=== PATIENT | female | born 1945 | race Caucasian/White ===

== ENCOUNTER 2018-06-25 11:08 | Outpatient (CLI) | payer MEDICARE, BC ==
[2018-06-25 11:29] VITALS: BP 158/79; PULSE 50
[2018-06-25] MEDS ORDERED: Bupivacaine 0.5% 30 ML SDV ONE (11:34)
[2018-06-25] MEDS ORDERED: Triamcinolone Acetonide 40 MG/ML 1 ML MDV ONE (11:38)
--- NOTE | 2018-06-25 20:38 | ANES ---
DATE OF SERVICE: 06/25/2018 PAIN CLINIC NOTE INDICATION: Princess is a 73-year-old female patient referred to us by Dr. Bobo for trigger point injections today. The patient has had these several times in the past and is well aware of the risks and the benefits. I also discussed today about using some Kenalog steroid in her trigger points to give her maybe a little more relief. She said she has been working a little more at work for the last few weeks and see if we can get her little more relief with the steroid. She agreed to do that like I said. Risks and benefits of the steroid and the trigger points were reviewed with the patient. The patient verbalized understanding and wishes to proceed. Please refer to the doctor's notes for ICD-10 code and diagnosis. TECHNIQUE: The patient was then sat at the edge of the bed. She was wanting me to focus on her lower back lumbar region. Alcohol was used to clean that area. I was able to easily identify approximately 17 to 18 trigger points across that area. 1 to 2 mL of 0.5% Sensorcaine mixed with 40 mg of Kenalog was injected into those areas. More than 3 muscle groups were injected today. The patient tolerated the procedure without difficulty. Please refer to the nurse's notes for vital signs. After the appropriate amount of time, the patient will be discharged per ACU protocol. Fabiano Ohara CRNA /[id number]
== END 2018-06-25 11:55 | disposition home or self-care (01) ==
LOC: JP.PAIN 11:08
PROVIDERS: ATTEND Internal Medicine
DX: M60.9 Myositis, unspecified (principal); M53.87 Other specified dorsopathies, lumbosacral region
CPT/HCPCS: 20553; J3301; J3490

== ENCOUNTER 2018-07-23 09:52 | Outpatient (CLI) | payer MEDICARE, BC ==
[~2018-07-23 09:52] MED LIST: Bupivacaine 0.5% 30 ML SDV ONE; Triamcinolone Acetonide 40 MG/ML 1 ML MDV ONE
[2018-07-23 10:13] VITALS: BP 170/84; PULSE 54
--- NOTE | 2018-07-23 20:19 | ANES ---
DATE OF SERVICE: 07/23/2018 Princess is a 73-year-old female patient, referred to us by Dr. Bobo for trigger point injections today. She has had them several times in the past and is well aware of the risks and benefits and wishes to proceed with trigger point injections. Please refer to the doctor's notes for ICD-10 code and diagnosis. Princess today was wanting me to use some Kenalog mixed in with her local. PROCEDURE: The patient was then sat at the edge of the bed. She wanted me to focus on her lower back lumbar region. That area was cleaned with alcohol. I was able to easily identify approximately 18 to 19 trigger points across the lower back lumbar region. 1 to 2 mL of 0.5% Sensorcaine mixed with 40 mg of Kenalog were injected into those areas. More than 3 muscle groups were injected today. The patient tolerated the procedure without difficulty. Please refer to the nurse's notes for vital signs. After the appropriate amount of time, the patient will be discharged per ACU protocol. Fabiano Ohara CRNA /[id number]
== END 2018-07-23 10:43 | disposition home or self-care (01) ==
LOC: JP.PAIN 09:52
PROVIDERS: ATTEND Internal Medicine
DX: M60.9 Myositis, unspecified (principal); M53.87 Other specified dorsopathies, lumbosacral region; M25.551 Pain in right hip
CPT/HCPCS: 20553; J3301; J3490

== ENCOUNTER 2018-09-03 09:29 | Outpatient (CLI) | payer MEDICARE, BC ==
[2018-09-03] MEDS ORDERED: Triamcinolone Acetonide 40 MG/ML 1 ML MDV ONE (09:47)
[2018-09-03] MEDS ORDERED: Bupivacaine 0.5% 30 ML SDV ONE (09:47)
[2018-09-03 10:01] VITALS: BP 174/99; PULSE 60
--- NOTE | 2018-09-03 17:49 | ANES ---
DATE OF SERVICE: 09/03/2018 INDICATION: Princess is a 73-year-old female patient referred to us by Dr. Bobo for trigger point injections today. Princess has had them several times in the past, is well aware of the risks and benefits, and wishes to proceed with trigger point injections. Please refer to the doctor's notes for ICD-10 code and diagnosis. TECHNIQUE: The patient was then sat at the edge of the bed. She is wanting me to focus on her lower back lumbar region. I was able to easily identify approximately 17 to 18 trigger points across that region. Alcohol was used to clean the skin prior to injection. More than 3 muscle groups were injected today. The patient tolerated the procedure without difficulty. Please refer to the nurse's notes for vital signs. After the appropriate amount of time, the patient will be discharged per ACU protocol. Fabiano Ohara CRNA /[id number]
== END 2018-09-03 10:03 | disposition home or self-care (01) ==
LOC: JP.PAIN 09:29
PROVIDERS: ATTEND Internal Medicine
DX: M60.9 Myositis, unspecified (principal); M53.87 Other specified dorsopathies, lumbosacral region
CPT/HCPCS: 20553; J3490; J3301

== ENCOUNTER 2019-09-11 07:15 | Inpatient (IN) | payer MEDICARE, BC ==
[~2019-09-11 07:15] MED LIST changes: -Bupivacaine 0.5% 30 ML SDV ONE; +Meropenem 500 MG SDV ONE; -Triamcinolone Acetonide 40 MG/ML 1 ML MDV ONE
[2019-09-11] MEDS ORDERED: Gabapentin 300 MG Cap PO ONE (08:00)
[2019-09-11] MEDS ORDERED: Rocuronium 50 MG/5 ML Vial ONE (08:23)
[2019-09-11] MEDS ORDERED: fentaNYL 250 MCG/5 ML SDV ONE (08:23)
[2019-09-11] MEDS ORDERED: Dexamethasone 4 MG/ML SDV ONE (08:23)
[2019-09-11] MEDS ORDERED: Ondansetron 4 MG/2 ML SDV ONE (08:23)
[2019-09-11] MEDS ORDERED: Glycopyrrolate 0.2 MG/ML 5 ML MDV ONE (08:23)
[2019-09-11] MEDS ORDERED: Succinylcholine 200 MG/10 ML MDV ONE (08:23)
[2019-09-11] MEDS ORDERED: Neostigmine Methylsulfate 1 MG/ML 5 ML Syringe ONE (08:23)
[2019-09-11] MEDS ORDERED: Propofol 200 MG/20 ML SDV ONE (08:23)
[2019-09-11] MEDS: Dextrose 5%-Lactated Ringers 1,000 ML IV SCH ×2 (08:30→19:10)
[2019-09-11] MEDS ORDERED: Acetaminophen 500 MG Tab PO ONE (09:00)
[2019-09-11] MEDS ORDERED: Albuterol/Ipratropium 3.0-0.5 MG/3 ML Neb Soln NEB ONE (09:00)
[2019-09-11] MEDS ORDERED: ceFAZolin 2 GM in Premix Bag 1 BAG IV ONE (09:00)
[2019-09-11] MEDS ORDERED: Bupivacaine 0.5% 50 ML MDV ONE (09:07)
[2019-09-11] MEDS ORDERED: Lidocaine 1% with EPINEPHrine 1:100,000 50 ML MDV ONE (09:08)
[2019-09-11] MEDS ORDERED: Ropivacaine 36 ML, dexAMETHasone 8 MG, EPINEPHrine 0.4 MG, Sodium Chloride 0.9% 41.6 ML NERVRT SCH ×4 (09:30)
[2019-09-11] MEDS ORDERED: Scopolamine 1.5 MG Transdermal Patch TRDERM SCH (09:30)
[2019-09-11] MEDS ORDERED: ePHEDrine 50 MG/ML SDV ONE (10:37)
[2019-09-11] MEDS ORDERED: Sodium Chloride 0.9% 10 ML ONE (10:37)
[2019-09-11] MEDS ORDERED: Naloxone 0.4 MG/ML SDV IVPUSH PRN (11:01)
[2019-09-11] MEDS ORDERED: diphenhydrAMINE 50 MG/ML SDV IVPUSH PRN (11:01)
[2019-09-11] MEDS ORDERED: diphenhydrAMINE 25 MG Cap PO PRN (11:01)
[2019-09-11] MEDS ORDERED: HYDROmorphone/Normal Saline 15 MG/30 ML PCA IV PRN (11:01)
[2019-09-11] MEDS ORDERED: Ondansetron 4 MG/2 ML SDV IVPUSH PRN (11:01)
[2019-09-11] MEDS ORDERED: Naloxone 0.4 MG/ML SDV IV PRN (12:00)
[2019-09-11] MEDS ORDERED: Lactated Ringers 1,000 ML ONE (12:15)
[2019-09-11] MEDS ORDERED: hydrOXYzine HCL 100 MG/2 ML SDV IM ONE (12:20)
[2019-09-11] MEDS ORDERED: Cyclobenzaprine 10 MG Tab PO PRN (13:38)
[2019-09-11] MEDS ORDERED: Albuterol/Ipratropium 3.0-0.5 MG/3 ML Neb Soln INH PRN (14:00)
[2019-09-11] MEDS ORDERED: hydrOXYzine HCL 100 MG/2 ML SDV IM PRN (14:00)
[2019-09-11] MEDS: SCOPOLAMINE PATCH CHECK TOP SCH (14:00)
[2019-09-11] MEDS: Albuterol/Ipratropium 3.0-0.5 MG/3 ML Neb Soln INH SCH ×2 (14:30→20:22)
[2019-09-11] MEDS: Gabapentin 300 MG Cap PO SCH ×2 (15:01→20:23)
[2019-09-11] MEDS: ceFAZolin 2 GM in Premix Bag 1 BAG IV SCH ×2 (15:01→23:52)
[2019-09-11] MEDS: Acetaminophen 325 MG Tab PO SCH ×2 (16:05→21:29)
[2019-09-11] MEDS: Ondansetron 4 MG/2 ML SDV IVPUSH PRN ×2 (16:36→20:39)
[2019-09-11] MEDS: ClonazePAM 0.5 MG Tab PO SCH (20:22)
[2019-09-11] MEDS: Montelukast 10 MG Tab PO SCH (20:24)
[2019-09-11] MEDS: Carvedilol 6.25 MG Tab PO SCH (20:24)
[2019-09-12] MEDS ORDERED: Lactated Ringers 500 ML IV SCH (00:15)
[2019-09-12] MEDS: Acetaminophen 325 MG Tab PO SCH ×4 (03:18→21:32)
[2019-09-12] MEDS: Dextrose 5%-Lactated Ringers 1,000 ML IV SCH ×3 (03:30→19:57)
[2019-09-12] MEDS: Albuterol/Ipratropium 3.0-0.5 MG/3 ML Neb Soln INH SCH ×4 (07:14→20:10)
--- NOTE | 2019-09-12 08:05 | OR ---
DATE OF PROCEDURE: 09/11/2019 SURGEON: Miguel Horn MD PREOPERATIVE DIAGNOSIS: Incarcerated incisional hernia. POSTOPERATIVE DIAGNOSES: 1. Incarcerated incisional hernia. 2. Elongated peritoneal frond-like lesion (15 cm). 3. Markedly redundant pannus status post repair of hernia. OPERATIVE PROCEDURES: Exploratory laparotomy with lysis of extensive adhesions; 1. Repair of incarcerated incisional hernia with mesh (80748, 81080). 2. Excision of elongated peritoneal frond-like lesion (69900). 3. Placement of Interceed mesh to limit recurrent adhesion formation between pelvic and abdominal wall and underlying viscera (18367). 4. Panniculectomy (10655). ANESTHESIA: General. CUSTOMER SOLUTIONS SPECIALIST: Laura Bruce PA-C. INDICATIONS FOR PROCEDURE: This is a 74-year-old female presenting with enlarging incisional hernia in the periumbilical area that has become nonreducible at this point and the plan is to proceed with a limited laparotomy for repair of the hernia with mesh with other procedures as indicated. Potential risks of the procedure including bleeding, infection, injury to underlying viscera, problems with mesh becoming infected or the hernia recurring as well as possibility of cardiopulmonary, septic, or hemorrhagic complications leading to were discussed, and the patient wishes to proceed. DETAILS OF PROCEDURE: The patient was taken to the operating room and placed in a supine position. After general endotracheal anesthesia was induced, a Sandoval catheter was inserted, and the abdomen was prepped and draped. A midline incision was then made just above the umbilicus, carried out through the skin and subcutaneous tissue. The hernia sac was then encountered. The hernia sac was overall quite large with roughly about the size of a softball. As hernia sac was entered, recurrent adhesions between the omentum and small bowel hernia sac were dissected free. Once this was accomplished, the hernia sac was excised flush with the fascia after being dissected away from the adjacent subcutaneous tissue, some additional adhesions to the small bowel, transverse colon and the omentum and the anterior abdominal wall. Large area of hernia was then taken down with a combination of cautery, sharp dissection and in some cases abdominal wall. Once this was accomplished, the area was inspected. There was a linear white glistening peritoneal lesion beyond the omentum that was carried down to the anterior abdominal wall which was encountered. This was of uncertain histologic nature and this was dissected free and removed in an intact manner. This measured 15 cm in maximal dimension. At this point, bilateral transversus abdominis plane blocks were placed after the adhesions had been cleared. The area was then mapped out and a Ventrio ST hernia patch with a dimensions of 19.6 x 24.6 cm with an oval configuration was selected. Due to the wide transverse nature of the hernia, this was eventually oriented with long axis in the transverse orientation. At roughly 5-cm interval along the circumference, 2-0 Vicryl sutures were placed and stab wounds were placed in the abdominal wall where those would be pulled up with a design to have the mesh affixed in an area well away from the fascial defect. When these sutures were placed, the mesh was soaked in antibiotic-containing saline solution and the left half of the sutures were initially pulled up and the mesh was then pulled up into that area up against the abdominal wall. Two Interceed meshes were then placed which would cover the area of the mesh placement as well as down into the pelvic wall to limit recurrent adhesion formation. Remaining right-sided sutures were then pulled up and this appeared to secure the mesh well on all directions. On the underlying shelf of the mesh, titanium-tacking screws had been placed circumferentially as well. At that point, the intraabdominal portion of procedure appeared to be satisfactorily completed. The fascia at this point appeared to best closed in a transverse manner. This was accomplished with a running #2 Vicryl stitch. The subcutaneous tissue was then approximated in transverse orientation as well in 3 layers. This eventually resulted in a significant distortion of the abdominal pannus with a large ridge extending from the incision in both directions. simply by the fact that the patient's hernia sac was so large, there was a large amount of redundant underlying subcutaneous tissue, and given this panniculectomy excision with the transversely oriented elliptical incision removing a significant portion of central abdominal skin and subcutaneous tissue was undertaken. Once this was accomplished, this was closed with some 3-0 and 4-0 Vicryl stitch deep and then the entire incision which was now T- shaped was closed with candelaria at the skin level. Prior to closure of the subcutaneous tissue, the fascial closure site was anesthetized with 0.5% Marcaine mixed with lidocaine. Physician social services assistant, Laura Norby, played an essential role in assisting in this case, helping to position the patient, retract structures as needed, as well as suturing and cutting sutures when indicated. Her presence improved patient's safety and decreased operative time. Miguel Horn MD /[id number]
[2019-09-12] MEDS: Ondansetron 4 MG/2 ML SDV IVPUSH PRN ×2 (08:24→16:17)
[2019-09-12] MEDS: ceFAZolin 2 GM in Premix Bag 1 BAG IV SCH (08:25)
[2019-09-12] MEDS: Gabapentin 300 MG Cap PO SCH ×3 (08:39→20:04)
[2019-09-12] MEDS: Carvedilol 6.25 MG Tab PO SCH ×2 (08:39→20:03)
[2019-09-12] MEDS: Aspirin 81 MG Tab.EC PO SCH (08:39)
[2019-09-12] MEDS: SCOPOLAMINE PATCH CHECK TOP SCH (10:26)
--- NOTE | 2019-09-12 19:18 | PN ---
DATE OF SERVICE: 09/12/2019 The patient has been afebrile with stable vital signs. No major problems have been noted other than some nausea overnight that appears to be abating. We will leave her on the COLOR ADVISER for today given the extent of surgery. We will go up to a step-2 diet. Maximize activity and work with pulmonary toilet. Miguel Horn MD /[id number]
[2019-09-12] MEDS: Montelukast 10 MG Tab PO SCH (20:04)
[2019-09-12] MEDS: ClonazePAM 0.5 MG Tab PO SCH (20:09)
[2019-09-13] MEDS: Acetaminophen 325 MG Tab PO SCH ×4 (03:04→21:10)
[2019-09-13] MEDS: Dextrose 5%-Lactated Ringers 1,000 ML IV SCH ×2 (05:45→16:17)
[2019-09-13] MEDS: Albuterol/Ipratropium 3.0-0.5 MG/3 ML Neb Soln INH SCH ×4 (07:07→20:55)
[2019-09-13] MEDS ORDERED: Triamcinolone Acetonide 40 MG/ML 1 ML MDV ONE (08:11)
[2019-09-13] MEDS ORDERED: Bupivacaine 0.5% 30 ML SDV ONE (08:12)
--- NOTE | 2019-09-13 09:20 | ANES ---
DATE OF SERVICE: 09/13/2019 INDICATION: Princess is a 74-year-old female patient, who is a frequent [facility] patient of ours, was supposed to have trigger points done a week ago, but had to self-quarantine because she was having hernia surgery on that following Saturday. Hernia surgery was on Saturday and went very well, talked to Dr. Horn who okayed us to do trigger points today because the patient was having a significant amount of back pain recently, and since she missed her appointment on Saturday, we did it today. The patient has been through it many times, understands the risks and benefits related to trigger point injections and wishes to proceed with trigger point injections today. Please refer to the doctor's notes for ICD-10 code and diagnosis. TECHNIQUE: The patient was then sat at the edge of the bed. She was wanting me to focus on her lower back lumbar region. Alcohol was used to clean her skin in that area. I was able to easily identify approximately 20 to 23 trigger points across her lower back lumbar region. 1 to 2 mL of 0.5% Sensorcaine mixed with 40 mg of Kenalog was injected into those areas. More than 3 muscle groups were injected today. The patient tolerated the procedure without difficulty. Please refer to the nurse's notes for vital signs. The patient tolerated the procedure just fine and will continue to be in the hospital related to her surgical procedure on Saturday. Fabiano Ohara CRNA /[id number]
[2019-09-13] MEDS: Docusate Sodium 100 MG Cap PO SCH ×2 (10:04→20:54)
[2019-09-13] MEDS: Gabapentin 300 MG Cap PO SCH ×3 (10:04→20:54)
[2019-09-13] MEDS: Bisacodyl 5 MG Tab PO SCH ×2 (10:04→20:54)
[2019-09-13] MEDS: Carvedilol 6.25 MG Tab PO SCH ×2 (10:05→20:54)
[2019-09-13] MEDS: Aspirin 81 MG Tab.EC PO SCH (10:06)
[2019-09-13] MEDS: SCOPOLAMINE PATCH CHECK TOP SCH (10:06)
--- NOTE | 2019-09-13 15:52 | PN ---
DATE OF SERVICE: 09/13/2019 The patient has been afebrile with stable vital signs. Pain control is a little bit marginal as she forgets to NARROW FABRICS WEAVER that was reviewed with the patient. We will leave NARROW FABRICS WEAVER going for today. Otherwise, maximize activity and work with pulmonary toilet and begin some bowel stimulation. We will switch her to oral pain medication tomorrow. Miguel Horn MD /[id number]
[2019-09-13] MEDS: HYDROmorphone 2 MG Tab PO PRN (19:29)
[2019-09-13] MEDS: ClonazePAM 0.5 MG Tab PO SCH (20:53)
[2019-09-13] MEDS: Montelukast 10 MG Tab PO SCH (20:54)
[2019-09-14] MEDS: Acetaminophen 325 MG Tab PO SCH ×5 (03:33→21:55)
[2019-09-14] MEDS: Albuterol/Ipratropium 3.0-0.5 MG/3 ML Neb Soln INH SCH ×4 (07:18→20:21)
[2019-09-14] MEDS: Aspirin 81 MG Tab.EC PO SCH (08:59)
[2019-09-14] MEDS: Bisacodyl 5 MG Tab PO SCH ×2 (08:59→20:25)
[2019-09-14] MEDS: SCOPOLAMINE PATCH CHECK TOP SCH (09:00)
[2019-09-14] MEDS: Gabapentin 300 MG Cap PO SCH ×3 (09:00→20:25)
[2019-09-14] MEDS: Docusate Sodium 100 MG Cap PO SCH ×2 (09:01→20:25)
[2019-09-14] MEDS: Carvedilol 6.25 MG Tab PO SCH ×2 (09:01→20:28)
--- NOTE | 2019-09-14 09:59 | PN ---
DATE OF SERVICE: 09/11/2019 SUBJECTIVE: Princess is passing flatus. Remains to be weak. O2 drops in the 70s, was sleeping. Nursing staff questioning sleep apnea. Pain has been somewhat controlled, but does not want anything in addition to pain control. Remainder of review of systems negative for any pertinent positives and negatives. Intake was 1960. Urine output 3200. OBJECTIVE: GENERAL: Princess Sims is a 74-year-old female, pale and weak. VITAL SIGNS: TPR at 0727 is 97.3, 58, 16, and blood pressure 138/75. HEENT: Negative. NECK: Supple. HEART: Regular rate and rhythm. LUNGS: Clear. ABDOMEN: Dressings dry and intact. Abdominal binder is on. Aquacel dressing dry and intact. EXTREMITIES: Without peripheral edema. ASSESSMENT: Exploratory laparotomy with lysis of adhesion: 1. Repair of incarcerated incisional hernia. 2. Excision of peritoneal lesion. 3. Panniculectomy. POSTOPERATIVE DIAGNOSES: 1. Incarcerated incisional hernia. 2. Elongated peritoneal lesion (15 cm). 3. Redundant pannus. PLAN: Continue to work with bowels. Discussed with the patient to have a sleep study ordered with some primary care provider to rule out sleep apnea. Continue use of incentive spirometer and ambulation. We will evaluate p.r.n. or in a.m. Laura Bruce PA-C /[id number]
[2019-09-14] MEDS: HYDROmorphone 2 MG Tab PO PRN ×2 (15:40→20:24)
[2019-09-14] MEDS: Montelukast 10 MG Tab PO SCH (20:27)
[2019-09-14] MEDS: ClonazePAM 0.5 MG Tab PO SCH (20:27)
[2019-09-15] MEDS: Acetaminophen 325 MG Tab PO SCH ×3 (05:22→09:56)
[2019-09-15] MEDS: Albuterol/Ipratropium 3.0-0.5 MG/3 ML Neb Soln INH SCH (07:18)
[2019-09-15 08:50] VITALS: BP 148/79; PULSE 66
[2019-09-15] MEDS: Docusate Sodium 100 MG Cap PO SCH (08:55)
[2019-09-15] MEDS: Carvedilol 6.25 MG Tab PO SCH (08:56)
[2019-09-15] MEDS: Aspirin 81 MG Tab.EC PO SCH (08:56)
[2019-09-15] MEDS: Gabapentin 300 MG Cap PO SCH (08:57)
[2019-09-15] MEDS: Bisacodyl 5 MG Tab PO SCH (08:57)
[2019-09-15] MEDS: HYDROmorphone 2 MG Tab PO PRN (09:02)
[2019-09-15] MEDS: SCOPOLAMINE PATCH CHECK TOP SCH (09:22)
--- NOTE | 2019-09-15 15:07 | DISCH ---
ADMISSION DIAGNOSES: 1. Incisional hernia. 2. Status post Wendi-en-Y gastric bypass surgery. 3. Unspecified surgical malabsorption. 4. B12 deficiency. 5. Asthma. 6. Atypical chest pain. 7. Hypertension. 8. Chronic pain syndrome. 9. Depression. 10.Grief reaction. 11.History of migraine headaches. 12.Neuropathy. 13.Osteoporosis. PROCEDURES PERFORMED: 1. Exploratory laparotomy with lysis of extensive adhesions. a. Repair of incarcerated incisional hernia with mesh. b. Excision of elongated peritoneal frond-like lesion. c. Placement of Interceed mesh to limit recurrent adhesion formation between pelvic and abdominal wall and underlying viscera. d. Panniculectomy. DISCHARGE DIAGNOSES: 1. Incarcerated incisional hernia. 2. Elongated peritoneal frond-like lesion, 15 cm. 3. Markedly redundant pannus, status post hernia repair. HISTORY: Princess is a 74-year-old female, presenting with enlarging incisional hernia in the periumbilical area that has become non-reducible at this point. After preoperative evaluation and discussion of possible risks and possible complications, she wished to proceed with surgical procedure. HOSPITAL COURSE: Surgery was on 09/11/2019. She had no operative complications. On postoperative day #1; pain was well managed, vital signs were stable, and she was started on step-2 gastric bypass diet. On postoperative day #2; vital signs remained stable, pain control was marginal due to falling asleep and then not waking up to push the FUR POINTER in time. Otherwise, she has been up ambulating. On postoperative day #2, started passing flatus. Bowel stimulation was started and it was noted that, during sleep, that she did have low saturations and nursing staff question sleep apnea. On 09/15/2019; vital signs were stable, activity was good, she did have a bowel movement, and oral intake was adequate. She was advanced to a step-3 diet and was able to be discharged to home. PHYSICAL EXAMINATION: GENERAL: Princess is a pleasant 74-year-old female. VITAL SIGNS: Height is 5 feet 3 inches. Weight is 158 pounds. BMI is 28. TPR at 0341; 97.1, 67, and 16. Blood pressure 145/61. HEENT: Negative. NECK: Supple. HEART: Regular rate and rhythm. LUNGS: Clear. ABDOMEN: Aquacel dressings on. Thompson are intact. EXTREMITIES: Without peripheral edema. DISPOSITION: Discharged to home. CONDITION: Stable and improving. FOLLOWUP APPOINTMENT: With Laura Bruce PA-C, at [facility], on 09/22/2019, at 1:30 p.m. DISCHARGE MEDICATIONS: Home Medications: 1. Dilaudid 2 mg every 6 hours p.r.n. pain, #28. 2. Tylenol 650 mg every 6 hours p.r.n. pain. She is to resume her home medications as prior to admission. DIET: Step-4 gastric bypass diet. ACTIVITY: No lifting over 10 pounds for 6 weeks. Other activity: Walk at least 6 times daily inside your home. Driving: Do not drive for 1 week and while on pain medication. Shower/Bathing: May shower, no tub bathing and swimming for 6 weeks. DISCHARGE INSTRUCTIONS: Notify provider if any fever, increased pain, nausea, or vomiting. Keep site clean and dry. Wear abdominal binder for 6 weeks and then as tolerated. Special instruction; use incentive spirometer 10 times every hour while awake. Princess was instructed to follow up with her primary care provider to get a sleep apnea test ordered. BRAIN
== END 2019-09-15 10:15 | disposition home or self-care (01) | DRG 354 ==
LOC: JP.SDS 07:15 → EDSTATUS 11:25 → JP.SDSSCHI 12:40 → JP.MS 12:41
PROVIDERS: ADMIT Surgery; ATTEND Surgery
PROC: 0WUF0JZ Supplement Abdominal Wall with Synthetic Substitute, Open Approach (ICD-10-PCS; principal; 2019-09-11)
PROC: 0DBW0ZZ Excision of Peritoneum, Open Approach (ICD-10-PCS; 2019-09-11)
PROC: 0JB80ZZ Excision of Abdomen Subcutaneous Tissue and Fascia, Open Approach (ICD-10-PCS; 2019-09-11)
PROC: 3E0M05Z Introduction of Adhesion Barrier into Peritoneal Cavity, Open Approach (ICD-10-PCS; 2019-09-11)
PROC: 3E0233Z Introduction of Anti-inflammatory into Muscle, Percutaneous Approach (ICD-10-PCS; 2019-09-13)
PROC: 3E023BZ Introduction of Anesthetic Agent into Muscle, Percutaneous Approach (ICD-10-PCS; 2019-09-13)
DX: K43.0 Incisional hernia with obstruction, without gangrene (principal); K91.2 Postsurgical malabsorption, not elsewhere classified; E53.8 Deficiency of other specified B group vitamins; R07.89 Other chest pain; I10 Essential (primary) hypertension; G89.4 Chronic pain syndrome; F32.9 Major depressive disorder, single episode, unspecified; M81.0 Age-related osteoporosis without current pathological fracture; F43.20 Adjustment disorder, unspecified; E65 Localized adiposity; E66.01 Morbid (severe) obesity due to excess calories; J45.20 Mild intermittent asthma, uncomplicated; E55.9 Vitamin D deficiency, unspecified; Z79.82 Long term (current) use of aspirin; Z79.899 Other long term (current) drug therapy; Z88.2 Allergy status to sulfonamides; Z88.5 Allergy status to narcotic agent; Z88.8 Allergy status to other drugs, medicaments and biological substances; Z68.28 Body mass index [BMI] 28.0-28.9, adult
CPT/HCPCS: 36415; 80053; 82607; 82728; 83735; 83880; 84100; 85025; 88302; 88305; 94640; 94762; A9270-GY; C1713; C1781; J0171; J0330; J0690; J1100; J1170; J2020; J2185; J2405; J2704; J2710; J2795; J3010; J3301; J3410; J3490; J7050; J7120; J7121; J7620-GY

== ENCOUNTER 2020-06-17 16:19 | Inpatient (IN) | payer MEDICARE, BC ==
[2020-06-17] MEDS ORDERED: Dexamethasone 4 MG/ML SDV IVPUSH ONE (18:11)
[2020-06-17] MEDS ORDERED: Sodium Chloride 0.9% 1,000 ML IV ONE (18:11)
[2020-06-17] MEDS ORDERED: Magnesium Sulfate/Water 2 GM/50 ML BAG IV ONE (18:11)
[2020-06-17] MEDS ORDERED: Prochlorperazine 10 MG/2 ML SDV IVPUSH ONE (18:11)
[2020-06-17] MEDS ORDERED: diphenhydrAMINE 50 MG/ML SDV IVPUSH ONE (18:11)
--- NOTE | 2020-06-17 18:13 | EDM.PDOC ---
ED HPI GENERAL MEDICAL PROBLEM - General Chief Complaint: Neurological Problem Stated Complaint: CONFUSION Time Seen by Provider: 06/17/20 17:57 Source of Information: Reports: Patient, Family History Limitations: Reports: Altered Mental Status - History of Present Illness INITIAL COMMENTS - FREE TEXT/NARRATIVE: Princess is a 75-year-old female presenting to the ED for a multitude of medical complaints including confusion, headache, blurred vision, and change in speech. Patient awoke this morning with a severe frontal headache is constant causing photophobia, blurred vision, and intense pressure behind the eyes. She denies any fever, chills, numbness or tingling, or weakness. She is currently being evaluated for blue toe syndrome due to severe peripheral vascular disease. She does have a history for frontal headaches, grief reaction with anxiety and depression, essential hypertension, lumbar pain with radiculopathy right-sided sciatica, migraine headaches, morbid obesity, B complex deficiency, hyperparathyroidism, transaminitis, D deficiency. Family noted that the patient's speech changed today when they called to check on her noting that it was more of "baby talk or a high pitch voice" versus her regular interaction. She also seemed a bit confused and keeps asking if she is lost. She denies any fall and there is no evidence for any trauma or ecchymosis. Unclear whether the headache woke her from sleep or she noticed that when she woke up. Frontal Head Pain Score (Numeric/FACES): 8 - Related Data Allergies Allergy/AdvReac Type Severity Reaction Status Date / Time aspartame Allergy Headache Verified 06/15/20 09:59 [From Nutrasweet Aspartame] Sulfa (Sulfonamide Allergy Fever Verified 06/15/20 09:59 Antibiotics) amitriptyline AdvReac Nausea and Verified 06/15/20 09:59 Vomiting ketorolac tromethamine AdvReac Nausea and Verified 06/15/20 09:59 [From Toradol] Vomiting tramadol AdvReac Nausea and Verified 06/15/20 09:59 Vomiting Home Meds: Home Meds Albuterol/Ipratropium [Combivent] 1 puff INH Q4H PRN 08/03/13 [History] Budesonide [Pulmicort] 1 vial NEB Q12H PRN 08/03/13 [History] Calcium Carbonate/Vitamin D3 [Calcium 600-Vit D3 200 Tablet] 1 each PO BID 08/03/13 [History] Cholecalciferol (Vitamin D3) [Vitamin D3] 50,000 unit PO MOWEFR 08/03/13 [History] Cyanocobalamin (Vitamin B-12) [Vitamin B-12] 1,000 mcg PO BID 08/03/13 [History] Folic Acid 1 mg PO DAILY 08/03/13 [History] Mometasone Furoate [Nasonex [place]] 1 spray EZIO DAILY PRN 08/03/13 [History] Montelukast [Singulair] 10 mg PO BEDTIME 08/03/13 [History] Multivitamin W/Iron, Minerals [Multivitamins with Iron] 1 each PO DAILY 08/03/13 [History] Aspirin [Low Dose Aspirin EC] 81 mg PO DAILY 04/27/15 [History] Carvedilol [Coreg] 6.25 mg PO BIDMEALS 04/27/15 [History] ZOLMitriptan [Zomig] 5 mg PO ASDIRECTED PRN 04/27/15 [History] Gabapentin [Neurontin] 300 mg PO BID 01/23/17 [History] Gabapentin [Neurontin] 600 mg PO BEDTIME 03/31/19 [History] Hydrocortisone Acetate [Anusol-Hc] 1 supp RECTAL BID PRN 03/31/19 [History] Albuterol/Ipratropium [DuoNeb 3.0-0.5 MG/3 ML] 3 ml INH Q4H PRN 09/09/19 [History] clonazePAM [Clonazepam] 0.125 mg SL BEDTIME PRN 09/11/19 [History] Acetaminophen [Tylenol] 650 mg PO Q6HR tablet 09/15/19 [Rx] lisinopriL [Lisinopril] 20 mg PO DAILY 04/20/20 [History] amLODIPine [Norvasc] 2.5 mg PO DAILY 05/04/20 [History] Pentoxifylline 400 mg PO TID 06/15/20 [History] Rosuvastatin [Crestor] 10 mg PO DAILY 06/15/20 [History] Past Medical History HEENT History: Reports: Cataract, Impaired Vision, Other (See Below) Other HEENT History: wears glasses Cardiovascular History: Reports: Hypertension, Other (See Below) Other Cardiovascular History: stress test = normal Respiratory History: Reports: Asthma Gastrointestinal History: Reports: Cholelithiasis, Hemorrhoids, Hepatitis Genitourinary History: Reports: Renal Calculus 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: Musculoskeletal History: Reports: Back Pain, Chronic, Fracture Neurological History: Reports: Migraines Psychiatric History: Reports: Anxiety, Depression, Other (See Below) Other Psychiatric History: 1990 amnesia Endocrine/Metabolic History: Reports: Other (See Below) Other Endocrine/Metabolic History: low blood sugar Hematologic History: Reports: Anemia, Iron Deficiency Dermatologic History: Reports: Eczema - Infectious Disease History Infectious Disease History: Reports: Chicken Pox, Measles, Mumps, Shingles Other Infectious Disease History: hepatitis unsure which one - Past Surgical History Head Surgeries/Procedures: Reports: None HEENT Surgical History: Reports: Adenoidectomy, Cataract Surgery, Tonsillectomy Cardiovascular Surgical History: Reports: None Respiratory Surgical History: Reports: None GI Surgical History: Reports: Bariatric Procedure, Cholecystectomy, Colonoscopy, EGD Female Surgical History: Reports: Hysterectomy Endocrine Surgical History: Reports: Parathyroidectomy Neurological Surgical History: Reports: None Musculoskeletal Surgical History: Reports: None Social & Family History - Family History Cardiac: Reports: Hypertension Oncologic: Reports: Brain, Liver, Lung - Tobacco Use Tobacco Use Status *Q: Never Tobacco User Second Hand Smoke Exposure: No - Caffeine Use Caffeine Use: Reports: None - Recreational Drug Use Recreational Drug Use: No ED ROS GENERAL - Review of Systems Review Of Systems: See Below Constitutional: Reports: Malaise HEENT: Reports: Vision Change (Blurred vision and photophobia) Respiratory: Reports: No Symptoms Cardiovascular: Reports: No Symptoms Endocrine: Reports: No Symptoms GI/Abdominal: Reports: Nausea : Reports: No Symptoms Musculoskeletal: Reports: No Symptoms Skin: Reports: No Symptoms Neurological: Reports: Headache (Severe frontal headache), Trouble Speaking (Slow to respond), Change in Speech (High-pitched speech). Denies: Numbness, Paresthesia, Tremors Psychiatric: Reports: Anxiety (Grieving the loss of 4 family members this year with birthdays this month.) Hematologic/Lymphatic: Reports: No Symptoms Immunologic: Reports: No Symptoms - Physical Exam Exam: See Below Exam Limited By: No Limitations General Appearance: Alert, Anxious, Mild Distress Eye Exam: Bilateral Eye: EOMI, PERRL Nose: Normal Inspection, Normal Mucosa Throat/Mouth: Normal Inspection, Normal Lips, Normal Oropharynx, Normal Voice, No Airway Compromise Head Exam: Atraumatic, Normocephalic Neck: Normal Inspection, Supple, Non-Tender, Full Range of Motion. No: Carotid Bruit, Lymphadenopathy (R), Lymphadenopathy (L) Respiratory/Chest: No Respiratory Distress, Lungs Clear, Normal Breath Sounds Cardiovascular: Normal Peripheral Pulses, Regular Rate, Rhythm, No Murmur GI/Abdominal: Normal Bowel Sounds, Soft, Non-Tender Neuro Exam (Abbreviated): Alert, Oriented (Slow to respond), CN II-XII Intact, Normal Cognition (Answers correctly but takes quite a bit of time to answer the question), No Motor/Sensory Deficits Back Exam: Normal Inspection, Full Range of Motion Extremities: Other (Painfull, blue right toe) Psychiatric: Anxious, Depressed Mood, Flat Affect Skin Exam: Warm, Dry Course - Vital Signs Last Recorded V/S: Last Vital Signs Temp 36.7 C 06/17/20 17:05 Pulse 59 L 06/17/20 19:22 Resp 14 06/17/20 19:22 BP 149/77 H 06/17/20 19:22 Pulse Ox 93 L 06/17/20 19:22 - Orders/Labs/Meds Orders: Active Orders 24 hr Category Date Time Status Cardiac Monitoring [RC] .As Directed Care 06/17/20 17:37 Active Dextrose 5% in Water 1,000 ml Med 06/17/20 19:15 Active IV ASDIRECTED Medication Orders Dextrose/Water (Dextrose 5% In Water) 1,000 mls @ 125 mls/hr IV ASDIRECTED ANISHA Last Admin: 06/17/20 19:23 Dose: 125 mls/hr Documented by: BRANNON Labs: Laboratory Tests 06/17/20 06/17/20 06/17/20 Range/Units 17:48 17:52 17:52 WBC 8.2 (4.5-11.0) K/uL RBC 4.11 (3.30-5.50) M/uL Hgb 12.3 (12.0-15.0) g/dL Hct 39.4 (36.0-48.0) % MCV 96 (80-98) fL MCH 30 (27-31) pg MCHC 31 L (32-36) % Plt Count 216 (150-400) K/uL Sodium 150 H (140-148) mmol/L Potassium 3.7 (3.6-5.2) mmol/L Chloride 107 (100-108) mmol/L Carbon Dioxide 29 (21-32) mmol/L Anion Gap 17.7 H (5.0-14.0) mmol/L BUN 16 (7-18) mg/dL Creatinine 0.8 (0.6-1.0) mg/dL Est Cr Clr Drug Dosing 48.80 mL/min Estimated GFR (MDRD) > 60 (>60) Glucose 99 (74-106) mg/dL Lactic Acid 1.0 (0.4-2.0) mmol/L Calcium 8.9 D (8.5-10.1) mg/dL Troponin I < 0.017 (0.000-0.056) ng/mL Urine Color (YELLOW) Urine Appearance (CLEAR) Urine pH (5.0-8.0) Ur Specific [place] (1.008-1.030) Urine Protein (NEGATIVE) mg/dL Urine Glucose (UA) (NEGATIVE) mg/dL Urine Ketones (NEGATIVE) mg/dL Urine Occult Blood (NEGATIVE) Urine Nitrite (NEGATIVE) Urine Bilirubin (NEGATIVE) Urine Urobilinogen (0.2-1.0) EU/dL Ur Leukocyte Esterase (NEGATIVE) Urine RBC (0-5) Urine WBC (0-5) Ur Epithelial Cells Amorphous Sediment Urine Bacteria Urine Mucus 06/17/20 Range/Units 18:50 WBC (4.5-11.0) K/uL RBC (3.30-5.50) M/uL Hgb (12.0-15.0) g/dL Hct (36.0-48.0) % MCV (80-98) fL MCH (27-31) pg MCHC (32-36) % Plt Count (150-400) K/uL Sodium (140-148) mmol/L Potassium (3.6-5.2) mmol/L Chloride (100-108) mmol/L Carbon Dioxide (21-32) mmol/L Anion Gap (5.0-14.0) mmol/L BUN (7-18) mg/dL Creatinine (0.6-1.0) mg/dL Est Cr Clr Drug Dosing mL/min Estimated GFR (MDRD) (>60) Glucose (74-106) mg/dL Lactic Acid (0.4-2.0) mmol/L Calcium (8.5-10.1) mg/dL Troponin I (0.000-0.056) ng/mL Urine Color Yellow (YELLOW) Urine Appearance Clear (CLEAR) Urine pH 5.5 (5.0-8.0) Ur Specific [place] 1.010 (1.008-1.030) Urine Protein Negative (NEGATIVE) mg/dL Urine Glucose (UA) Negative (NEGATIVE) mg/dL Urine Ketones Negative (NEGATIVE) mg/dL Urine Occult Blood Negative (NEGATIVE) Urine Nitrite Negative (NEGATIVE) Urine Bilirubin Negative (NEGATIVE) Urine Urobilinogen 0.2 (0.2-1.0) EU/dL Ur Leukocyte Esterase Small H (NEGATIVE) Urine RBC 0-5 (0-5) Urine WBC 0-5 (0-5) Ur Epithelial Cells Rare Amorphous Sediment Not seen Urine Bacteria Rare Urine Mucus Not seen Meds: Medications Generic Name Dose Route Start Last Admin Trade Name Freq PRN Reason Stop Dose Admin Dextrose/Water 1,000 mls @ 125 mls/hr 06/17/20 19:15 06/17/20 19:23 Dextrose 5% In Water IV 125 mls/hr ASDIRECTED ANISHA Administration Discontinued Medications Generic Name Dose Route Start Last Admin Trade Name Freq PRN Reason Stop Dose Admin Dexamethasone 10 mg 06/17/20 18:11 06/17/20 18:40 Dexamethasone 4 Mg/Ml Sdv IVPUSH 06/17/20 18:12 10 mg ONETIME ONE Administration Diphenhydramine HCl 25 mg 06/17/20 18:11 06/17/20 18:36 Diphenhydramine 50 Mg/Ml Sdv IVPUSH 06/17/20 18:12 25 mg ONETIME ONE Administration Magnesium Sulfate 2 gm in 50 mls @ 25 mls/hr 06/17/20 18:11 06/17/20 18:43 Magnesium Sulfate In Water 2 Gm/50 Ml IV 06/17/20 20:10 25 mls/hr ONETIME ONE Administration Sodium Chloride 1,000 mls @ 999 mls/hr 06/17/20 18:11 06/17/20 18:48 Normal Saline IV 06/17/20 19:11 999 mls/hr .BOLUS ONE Administration Prochlorperazine Edisylate 10 mg 06/17/20 18:11 06/17/20 18:38 Prochlorperazine 10 Mg/2 Ml Sdv IVPUSH 06/17/20 18:12 10 mg ONETIME ONE Administration - Re-Assessments/Exams Free Text/Narrative Re-Assessment/Exam: 06/17/20 20:43 I reviewed the patient's labs showing a significant elevation of her sodium at 150. I did order a urine osmolality, however, it is a send out and will not go out until Saturday so this is useless and acute hypernatremia. Patient was switched off of normal saline to D5W for free water. At this point, she is not quite back to baseline although her headache is much better after treatment with diphenhydramine 25 mg IV, dexamethasone 10 mg IV, Compazine 10 mg IV, and magnesium 2 g IV. I do think that we should admit her for observation and continued water resuscitation. I discussed the case with Dr. Garay who will come in to admit the patient. 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 equivalents) Altered mental status Qualifiers: Altered mental status type: transient alteration of awareness Qualified Code(s): R40.4 - Transient alteration of awareness - Discharge Information Referrals: Gianni Bobo MD [Primary Care Provider] - Forms: ED Department Discharge Sepsis Event Note (ED) - Evaluation Sepsis Screening Result: No Definite Risk - Focused Exam Vital Signs: Vital Signs Temp Pulse Resp BP Pulse Ox 06/17/20 19:22 59 L 14 149/77 H 93 L 06/17/20 18:13 58 L 15 155/82 H 93 L 06/17/20 17:24 56 L 12 145/78 H 93 L 06/17/20 17:05 36.7 C 59 L 16 169/88 H 100 06/17/20 16:55 36.7 C 59 L 16 169/88 H 100 - Problem List & Annotations (1) Acute hypernatremia SNOMED Code(s): 9065859 Code(s): E87.0 - HYPEROSMOLALITY AND HYPERNATREMIA Status: Acute Priority: High Current Visit: Yes (2) Altered mental status SNOMED Code(s): 497225597 Code(s): R41.82 - ALTERED MENTAL STATUS, UNSPECIFIED Status: Acute Priority: High Current Visit: Yes Qualifiers: Altered mental status type: transient alteration of awareness Qualified Code(s): R40.4 - Transient alteration of awareness (3) 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
--- NOTE | 2020-06-17 18:53 | CRLCT ---
INDICATION: Confusion TECHNIQUE: CT head without contrast. COMPARISON: None. FINDINGS: CSF spaces: Within normal limits for age. Brain parenchyma: No intracranial bleed or mass effect. Givens-white differentiation is distinct. Small amount of low-density in the deep white matter. Skull base and calvarium: The visualized paranasal sinuses and mastoid air cells demonstrate no acute or significant findings. The visualized orbits are grossly unremarkable. No skull fractures. Right frontal exostosis at the outer table measuring 16 millimeters. IMPRESSION: 1. No intracranial bleed or mass effect. 2. Nonspecific white matter disease, likely microangiopathy. Please note that all CT scans at this facility use dose modulation, iterative reconstruction, and/or weight-based dosing when appropriate to reduce radiation dose to as low as reasonably achievable. Dictated by Saurabh Villegas MD @ Jun 17 2020 6:50PM Signed by Dr. Saurabh Villegas @ Jun 17 2020 6:52PM
[2020-06-17] MEDS ORDERED: Dextrose 5% in Water 1,000 ML IV SCH ×2 (19:15→22:45)
[2020-06-17] MEDS ORDERED: Promethazine 6.25 MG in Sodium Chloride 0.9% 50 ML IV PRN (21:15)
[2020-06-17] MEDS ORDERED: Acetaminophen/oxyCODONE 325-5 MG Tab PO PRN (21:15)
[2020-06-17] MEDS ORDERED: Acetaminophen 325 MG Tab PO PRN (21:15)
[2020-06-17] MEDS ORDERED: Albuterol/Ipratropium 3.0-0.5 MG/3 ML Neb Soln NEB PRN (21:33)
[2020-06-17] MEDS ORDERED: Carvedilol 3.125 MG Tab PO ONE (21:33)
--- NOTE | 2020-06-17 22:08 | PCM.HP.2 ---
H&P History of Present Illness - General Date of Service: 06/17/20 Admit Problem/Dx: Admission Diagnosis/Problem Admission Diagnosis/Problem Hypernatremia Source of Information: Patient, Family History Limitations: Reports: Altered Mental Status - History of Present Illness Initial Comments - Free Text/Narative: Patient is a 75yo female who was brought in by family from the clinic due to acute confusion. She was fine earlier in the day and has been fine leading up to today. She was found to be acutely hypernatremic, but seemingly not hypovolemic as her urine was dilute. However, this is in question, as there is no way to test urine osmolality in this facility. She is improving in the ED with D5W. She additionally has PMH of HTN, HLD, neuropathic pain, PAD, asthma, vitamin deficiencies, and migraines. Onset of Symptoms: Reports: Today, Sudden Symptom Onset Date: 06/17/20 Duration of Symptoms: Reports: Hour(s): Location: Reports: Generalized Severity: Moderate Improves with: Reports: Medication Worsens with: Reports: None Associated Symptoms: Reports: Confusion, Weakness Frontal Head Pain Score (Numeric/FACES): 2 - Related Data Allergies/Adverse Reactions: Allergies Allergy/AdvReac Type Severity Reaction Status Date / Time aspartame Allergy Headache Verified 06/15/20 09:59 [From Nutrasweet Aspartame] Sulfa (Sulfonamide Allergy Fever Verified 06/15/20 09:59 Antibiotics) amitriptyline AdvReac Nausea and Verified 06/15/20 09:59 Vomiting ketorolac tromethamine AdvReac Nausea and Verified 06/15/20 09:59 [From Toradol] Vomiting tramadol AdvReac Nausea and Verified 06/15/20 09:59 Vomiting Home Medications: Home Meds Albuterol/Ipratropium [Combivent] 1 puff INH Q4H PRN 08/03/13 [History] Budesonide [Pulmicort] 1 vial NEB Q12H PRN 08/03/13 [History] Calcium Carbonate/Vitamin D3 [Calcium 600-Vit D3 200 Tablet] 1 each PO BID 08/03/13 [History] Cholecalciferol (Vitamin D3) [Vitamin D3] 50,000 unit PO MOWEFR 08/03/13 [History] Cyanocobalamin (Vitamin B-12) [Vitamin B-12] 1,000 mcg PO BID 08/03/13 [History] Folic Acid 1 mg PO DAILY 08/03/13 [History] Mometasone Furoate [Nasonex [place]] 1 spray EZIO DAILY PRN 08/03/13 [History] Montelukast [Singulair] 10 mg PO BEDTIME 08/03/13 [History] Multivitamin W/Iron, Minerals [Multivitamins with Iron] 1 each PO DAILY 08/03/13 [History] Aspirin [Low Dose Aspirin EC] 81 mg PO DAILY 04/27/15 [History] Carvedilol [Coreg] 6.25 mg PO BIDMEALS 04/27/15 [History] ZOLMitriptan [Zomig] 5 mg PO ASDIRECTED PRN 04/27/15 [History] Gabapentin [Neurontin] 300 mg PO BID 01/23/17 [History] Gabapentin [Neurontin] 600 mg PO BEDTIME 03/31/19 [History] Hydrocortisone Acetate [Anusol-Hc] 1 supp RECTAL BID PRN 03/31/19 [History] Albuterol/Ipratropium [DuoNeb 3.0-0.5 MG/3 ML] 3 ml INH Q4H PRN 09/09/19 [History] clonazePAM [Clonazepam] 0.125 mg SL BEDTIME PRN 09/11/19 [History] Acetaminophen [Tylenol] 650 mg PO Q6HR tablet 09/15/19 [Rx] lisinopriL [Lisinopril] 20 mg PO DAILY 04/20/20 [History] amLODIPine [Norvasc] 2.5 mg PO DAILY 05/04/20 [History] Pentoxifylline 400 mg PO TID 06/15/20 [History] Rosuvastatin [Crestor] 10 mg PO DAILY 06/15/20 [History] Past Medical History HEENT History: Reports: Cataract, Impaired Vision, Other (See Below) Other HEENT History: wears glasses Cardiovascular History: Reports: Hypertension, Other (See Below) Other Cardiovascular History: stress test = normal Respiratory History: Reports: Asthma Gastrointestinal History: Reports: Cholelithiasis, Hemorrhoids, Hepatitis Genitourinary History: Reports: Renal Calculus 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: Musculoskeletal History: Reports: Back Pain, Chronic, Fracture Neurological History: Reports: Migraines Psychiatric History: Reports: Anxiety, Depression, Other (See Below) 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 Endocrine/Metabolic History: Reports: Other (See Below) Other Endocrine/Metabolic History: low blood sugar Hematologic History: Reports: Anemia, Iron Deficiency Dermatologic History: Reports: Eczema - Infectious Disease History Infectious Disease History: Reports: Chicken Pox, Measles, Mumps, Shingles Other Infectious Disease History: hepatitis unsure which one - Past Surgical History Head Surgeries/Procedures: Reports: None HEENT Surgical History: Reports: Adenoidectomy, Cataract Surgery, Tonsillectomy Cardiovascular Surgical History: Reports: None Respiratory Surgical History: Reports: None GI Surgical History: Reports: Bariatric Procedure, Cholecystectomy, Colonoscopy, EGD Female Surgical History: Reports: Hysterectomy Endocrine Surgical History: Reports: Parathyroidectomy Neurological Surgical History: Reports: None Musculoskeletal Surgical History: Reports: None Social & Family History - Family History Cardiac: Reports: Hypertension Oncologic: Reports: Brain, Liver, Lung - Tobacco Use Tobacco Use Status *Q: Never Tobacco User Second Hand Smoke Exposure: No - Caffeine Use Caffeine Use: Reports: None - Recreational Drug Use Recreational Drug Use: No H&P Review of Systems - Review of Systems: Review Of Systems: See Below General: Reports: Weakness, Fatigue HEENT: Reports: No Symptoms Pulmonary: Reports: No Symptoms Cardiovascular: Reports: No Symptoms Gastrointestinal: Reports: No Symptoms Genitourinary: Reports: No Symptoms Musculoskeletal: Reports: No Symptoms Skin: Reports: No Symptoms Psychiatric: Reports: No Symptoms Neurological: Reports: Confusion, Dizziness, Trouble Speaking, Weakness, Change in Speech Hematologic/Lymphatic: Reports: No Symptoms Immunologic: Reports: No Symptoms Exam - Exam Exam: See Below - Vital Signs Vital Signs: Last Vital Signs Temp 36.7 C 06/17/20 17:05 Pulse 63 06/17/20 21:06 Resp 14 06/17/20 19:22 BP 148/79 H 06/17/20 21:06 Pulse Ox 94 L 06/17/20 21:06 Weight: 68.039 kg - Exam General: Alert, Oriented, 4 HEENT: PERRLA, Hearing Intact, Mucosa Moist & [place], Nares Patent, Normal Nasal Septum, Posterior Pharynx Clear, Conjunctiva Clear, EOMI, EACs Clear, TMs Clear Neck: Supple, Trachea Midline, 2 Lungs: Clear to Auscultation, Normal Respiratory Effort Cardiovascular: Regular Rate, Regular Rhythm GI/Abdominal Exam: Normal Bowel Sounds, Soft, Non-Tender, No Organomegaly, No Distention, No Abnormal Bruit, No Mass, Pelvis Stable (Female) Exam: Deferred Rectal (Female) Exam: Deferred Back Exam: Normal Inspection, Full Range of Motion, NT Extremities: Normal Inspection, Normal Range of Motion, Non-Tender, No Pedal Edema, Normal Capillary Refill Skin: Warm, Dry, Intact Neurological: Cranial Nerves Intact, Reflexes Equal Bilateral Neuro Extensive - Mental Status: Alert, Oriented x3, Normal Mood/Affect, Normal Cognition Neuro Extensive - Motor, Sensory, Reflexes: CN II-XII Intact, Normal Gait, Normal Reflexes Psychiatric: Alert, Normal Affect, Normal Mood - Patient Data Lab Results Last 24 hrs: Laboratory Results - last 24 hr 06/17/20 06/17/20 06/17/20 Range/Units 17:48 17:52 17:52 WBC 8.2 (4.5-11.0) K/uL RBC 4.11 (3.30-5.50) M/uL Hgb 12.3 (12.0-15.0) g/dL Hct 39.4 (36.0-48.0) % MCV 96 (80-98) fL MCH 30 (27-31) pg MCHC 31 L (32-36) % Plt Count 216 (150-400) K/uL Sodium 150 H (140-148) mmol/L Potassium 3.7 (3.6-5.2) mmol/L Chloride 107 (100-108) mmol/L Carbon Dioxide 29 (21-32) mmol/L Anion Gap 17.7 H (5.0-14.0) mmol/L BUN 16 (7-18) mg/dL Creatinine 0.8 (0.6-1.0) mg/dL Est Cr Clr Drug Dosing 48.80 mL/min Estimated GFR (MDRD) > 60 (>60) Glucose 99 (74-106) mg/dL Lactic Acid 1.0 (0.4-2.0) mmol/L Calcium 8.9 D (8.5-10.1) mg/dL Troponin I < 0.017 (0.000-0.056) ng/mL Urine Color (YELLOW) Urine Appearance (CLEAR) Urine pH (5.0-8.0) Ur Specific [place] (1.008-1.030) Urine Protein (NEGATIVE) mg/dL Urine Glucose (UA) (NEGATIVE) mg/dL Urine Ketones (NEGATIVE) mg/dL Urine Occult Blood (NEGATIVE) Urine Nitrite (NEGATIVE) Urine Bilirubin (NEGATIVE) Urine Urobilinogen (0.2-1.0) EU/dL Ur Leukocyte Esterase (NEGATIVE) Urine RBC (0-5) Urine WBC (0-5) Ur Epithelial Cells Amorphous Sediment Urine Bacteria Urine Mucus 06/17/20 Range/Units 18:50 WBC (4.5-11.0) K/uL RBC (3.30-5.50) M/uL Hgb (12.0-15.0) g/dL Hct (36.0-48.0) % MCV (80-98) fL MCH (27-31) pg MCHC (32-36) % Plt Count (150-400) K/uL Sodium (140-148) mmol/L Potassium (3.6-5.2) mmol/L Chloride (100-108) mmol/L Carbon Dioxide (21-32) mmol/L Anion Gap (5.0-14.0) mmol/L BUN (7-18) mg/dL Creatinine (0.6-1.0) mg/dL Est Cr Clr Drug Dosing mL/min Estimated GFR (MDRD) (>60) Glucose (74-106) mg/dL Lactic Acid (0.4-2.0) mmol/L Calcium (8.5-10.1) mg/dL Troponin I (0.000-0.056) ng/mL Urine Color Yellow (YELLOW) Urine Appearance Clear (CLEAR) Urine pH 5.5 (5.0-8.0) Ur Specific [place] 1.010 (1.008-1.030) Urine Protein Negative (NEGATIVE) mg/dL Urine Glucose (UA) Negative (NEGATIVE) mg/dL Urine Ketones Negative (NEGATIVE) mg/dL Urine Occult Blood Negative (NEGATIVE) Urine Nitrite Negative (NEGATIVE) Urine Bilirubin Negative (NEGATIVE) Urine Urobilinogen 0.2 (0.2-1.0) EU/dL Ur Leukocyte Esterase Small H (NEGATIVE) Urine RBC 0-5 (0-5) Urine WBC 0-5 (0-5) Ur Epithelial Cells Rare Amorphous Sediment Not seen Urine Bacteria Rare Urine Mucus Not seen Result Diagrams: 06/17/20 17:52 06/17/20 17:52 Sepsis Event Note - Evaluation Sepsis Screening Result: No Definite Risk - Focused Exam Vital Signs: Vital Signs Temp Pulse Resp BP Pulse Ox 06/17/20 21:06 63 148/79 H 94 L 06/17/20 19:22 59 L 14 149/77 H 93 L 06/17/20 18:13 58 L 15 155/82 H 93 L 06/17/20 17:24 56 L 12 145/78 H 93 L 06/17/20 17:05 36.7 C 59 L 16 169/88 H 100 06/17/20 16:55 36.7 C 59 L 16 169/88 H 100 - Problem List (1) Acute hypernatremia SNOMED Code(s): 7032360 ICD Code: E87.0 - HYPEROSMOLALITY AND HYPERNATREMIA Status: Acute Priority: High Current Visit: Yes Onset Date: 06/17/20 Problem Details: Will continue to give D5W and will continue to monitor Na+ levels. Patient on up with assist due to possible dizziness/weakness/confusion. (2) Altered mental status SNOMED Code(s): 834370124 ICD Code: R41.82 - ALTERED MENTAL STATUS, UNSPECIFIED Status: Acute Priority: High Current Visit: Yes Onset Date: ~06/17/20 Problem Details: Resolved with D5W Qualifiers: Altered mental status type: transient alteration of awareness Qualified Code(s): R40.4 - Transient alteration of awareness (3) Asthma SNOMED Code(s): 941558406 ICD Code: J45.909 - UNSPECIFIED ASTHMA, UNCOMPLICATED Status: Acute Current Visit: Yes Problem Details: Will continue home meds and give duonebs and pulmicort for maintanence as needed Qualifiers: Asthma severity: moderate (4) HLD (hyperlipidemia) SNOMED Code(s): 52531272 ICD Code: E78.5 - HYPERLIPIDEMIA, UNSPECIFIED Status: Acute Current Visit: Yes Problem Details: will continue home medications Qualifiers: Hyperlipidemia type: unspecified Qualified Code(s): E78.5 - Hyperlipidemia, unspecified (5) PAD (peripheral artery disease) SNOMED Code(s): 882113405 ICD Code: I73.9 - PERIPHERAL VASCULAR DISEASE, UNSPECIFIED Status: Acute Current Visit: Yes Problem Details: Will continue home medications (6) Neuropathy SNOMED Code(s): 188435586 ICD Code: G62.9 - POLYNEUROPATHY, UNSPECIFIED Status: Acute Current Visit: Yes Problem Details: Patient receives gabapentin 600mg QHS and 300mg BID to treat neuropathy (7) GERD (gastroesophageal reflux disease) SNOMED Code(s): 933213829 ICD Code: K21.9 - GASTRO-ESOPHAGEAL REFLUX DISEASE WITHOUT ESOPHAGITIS Status: Acute Current Visit: Yes Problem Details: will continue PPI while in hospital (8) Essential hypertension SNOMED Code(s): 44022275 ICD Code: I10 - ESSENTIAL (PRIMARY) HYPERTENSION Status: Chronic Current Visit: No Problem Details: Will continue home medications Problem List Initiated/Reviewed/Updated: Yes Orders Last 24hrs: Active Orders 24 hr Category Date Time Status Patient Status [ADT] Routine ADT 06/17/20 21:06 Ordered Bedrest Bedside Commode [RC] ASDIRECTED Care 06/17/20 21:15 Ordered Cardiac Monitoring [RC] .As Directed Care 06/17/20 17:37 Active Cardiac Monitoring [RC] .As Directed Care 06/17/20 21:18 Ordered Intake and Output [RC] QSHIFT Care 06/17/20 21:18 Ordered Oxygen Therapy [RC] PRN Care 06/17/20 21:06 Ordered Pulse Oximetry [RC] CONTINUOUS Care 06/17/20 21:18 Ordered RT Aerosol Therapy [RC] ASDIRECTED Care 06/17/20 21:36 Ordered Up With Assistance [RC] ASDIRECTED Care 06/17/20 21:15 Ordered Vital Signs [RC] Q4H Care 06/17/20 21:06 Ordered 2 Gram Sodium Diet [DIET] Diet 06/17/20 Breakfast Ordered COMPREHENSIVE METABOLIC PN,CMP [CHEM] Routine Lab 06/18/20 08:00 Ordered COMPREHENSIVE METABOLIC PN,CMP [CHEM] Timed Lab 06/18/20 02:00 Ordered UA W/O MICROSCOPIC [URIN] Routine Lab 06/18/20 09:00 Ordered Acetaminophen [TylenoL] Med 06/17/20 21:15 Ordered 650 mg PO Q4H PRN Acetaminophen/oxyCODONE [Percocet 325-5 MG] Med 06/17/20 21:15 Ordered 1 tab PO Q4H PRN Albuterol/Ipratropium [DuoNeb 3.0-0.5 MG/3 ML] Med 06/17/20 21:33 Ordered 3 ml NEB Q4H PRN Budesonide [Pulmicort] Med 06/18/20 07:00 Ordered 0.5 mg NEB BIDRT Dextrose 5% in Water 1,000 ml Med 06/17/20 19:15 Active IV ASDIRECTED Folic Acid Med 06/18/20 09:00 Ordered 1 mg PO DAILY Gabapentin [Neurontin] Med 06/18/20 09:00 Ordered 300 mg PO BID Gabapentin [Neurontin] Med 06/18/20 21:00 Ordered 600 mg PO BEDTIME Ibuprofen [Motrin] Med 06/17/20 21:15 Ordered 600 mg PO Q6H PRN Morphine Med 06/17/20 21:15 Ordered 2 mg IVPUSH Q2H PRN Ondansetron [Zofran ODT] Med 06/17/20 21:15 Ordered 4 mg PO Q6H PRN Pantoprazole [ProTONIX] Med 06/18/20 07:30 Ordered 40 mg PO ACBREAKFAST Pentoxifylline [TRENtal] Med 06/18/20 08:00 Ordered 400 mg PO TIDMEALS Promethazine [Phenergan] 6.25 mg Med 06/17/20 21:15 Ordered Sodium Chloride 0.9% [Normal Saline] 50 ml IV Q6H Rosuvastatin [Crestor] Med 06/18/20 09:00 Ordered 10 mg PO DAILY amLODIPine [Norvasc] Med 06/18/20 09:00 Ordered 2.5 mg PO DAILY lisinopriL [Prinivil] Med 06/18/20 09:00 Ordered 20 mg PO DAILY Resuscitation Status Routine Resus Stat 06/17/20 21:06 Ordered Medication Orders Acetaminophen (Acetaminophen 325 Mg Tab) 650 mg PO Q4H PRN PRN Reason: Pain (Mild 1-3)/fever Albuterol/Ipratropium (Albuterol/Ipratropium 3.0-0.5 Mg/3 Ml Neb Soln) 3 ml NEB Q4H PRN PRN Reason: Cough Amlodipine Besylate (Amlodipine 5 Mg Tab) 2.5 mg PO DAILY ANISHA Budesonide (Budesonide 0.5 Mg/2 Ml Neb Susp) 0.5 mg NEB BIDRT ANISHA Folic Acid (Folic Acid 1 Mg Tab) 1 mg PO DAILY ANISHA Gabapentin (Gabapentin 300 Mg Cap) 600 mg PO BEDTIME ANISHA Gabapentin (Gabapentin 300 Mg Cap) 300 mg PO BID@0800,1400 [facility] Dextrose/Water (Dextrose 5% In Water) 1,000 mls @ 125 mls/hr IV ASDIRECTED [facility] Last Admin: 06/17/20 19:23 Dose: 125 mls/hr Documented by: BRANNON Promethazine HCl 6.25 mg/ (Sodium Chloride) 50.25 mls @ 200 mls/hr IV Q6H PRN PRN Reason: Nausea/Vomiting Ibuprofen (Ibuprofen 600 Mg Tab) 600 mg PO Q6H PRN PRN Reason: Pain/Fever Lisinopril (Lisinopril 20 Mg Tab) 20 mg PO DAILY [facility] Morphine Sulfate (Morphine 2 Mg/Ml Syringe) 2 mg IVPUSH Q2H PRN PRN Reason: Pain (severe 7-10) Ondansetron HCl (Ondansetron 4 Mg Tab.Dis) 4 mg PO Q6H PRN PRN Reason: Nausea able to take PO Oxycodone/Acetaminophen (Acetaminophen/Oxycodone 325-5 Mg Tab) 1 tab PO Q4H PRN PRN Reason: Pain (moderate 4-6) Pantoprazole Sodium (Pantoprazole 40 Mg Tab.Cr) 40 mg PO ACBREAKFAST [facility] Pentoxifylline (Pentoxifylline 400 Mg Tab.Er) 400 mg PO TIDMEALS [facility] Rosuvastatin Calcium (Rosuvastatin 10 Mg Tab) 10 mg PO DAILY [facility] - Mortality Measure Prognosis:: Good
[2020-06-18] MEDS: Ibuprofen 600 MG Tab PO PRN ×3 (03:49→19:19)
[2020-06-18] MEDS: Budesonide 0.5 MG/2 ML Neb Susp NEB SCH ×2 (07:43→20:33)
[2020-06-18] MEDS: Pantoprazole 40 MG Tab.CR PO SCH (09:08)
[2020-06-18] MEDS: Gabapentin 300 MG Cap PO SCH ×3 (09:08→20:33)
[2020-06-18] MEDS: Lisinopril 20 MG Tab PO SCH (09:09)
[2020-06-18] MEDS: Pentoxifylline 400 MG Tab.ER PO SCH ×3 (09:09→17:44)
[2020-06-18] MEDS: Rosuvastatin 10 MG Tab PO SCH (09:09)
[2020-06-18] MEDS: Folic Acid 1 MG Tab PO SCH (09:09)
[2020-06-18] MEDS: amLODIPine 5 MG Tab PO SCH (09:10)
--- NOTE | 2020-06-18 11:09 | PCM.PN ---
- General Info Date of Service: 06/18/20 Subjective Update: Ms. Sims has been stable since admission last night. She experienced an episode of confusion and was found to be associated with mild hyponatremia. No other obvious metabolic abnormalities were identified and there is been no evidence of underlying infection. She is feeling well this morning and back to her usual cognitive function. Hyponatremia has resolved with management through the night. Functional Status: Reports: Tolerating Diet, Ambulating, Urinating - Review of Systems General: Reports: No Symptoms Pulmonary: Reports: No Symptoms Cardiovascular: Reports: No Symptoms Gastrointestinal: Reports: No Symptoms - Patient Data Vitals - Most Recent: Last Vital Signs Temp 97.9 F 06/18/20 07:00 Pulse 53 L 06/18/20 07:00 Resp 18 06/18/20 07:00 BP 118/47 L 06/18/20 09:10 Pulse Ox 92 L 06/18/20 07:00 Weight - Most Recent: 150 lb 1.6 oz I&O - Last 24 Hours: Intake & Output 06/17/20 06/18/20 06/18/20 22:59 06:59 14:59 Intake Total 360 Output Total 400 Balance -400 360 Lab Results Last 24 Hours: Laboratory Results - last 24 hr 06/17/20 06/17/20 06/17/20 Range/Units 17:48 17:52 17:52 WBC 8.2 (4.5-11.0) K/uL RBC 4.11 (3.30-5.50) M/uL Hgb 12.3 (12.0-15.0) g/dL Hct 39.4 (36.0-48.0) % MCV 96 (80-98) fL MCH 30 (27-31) pg MCHC 31 L (32-36) % Plt Count 216 (150-400) K/uL Sodium 150 H (140-148) mmol/L Potassium 3.7 (3.6-5.2) mmol/L Chloride 107 (100-108) mmol/L Carbon Dioxide 29 (21-32) mmol/L Anion Gap 17.7 H (5.0-14.0) mmol/L BUN 16 (7-18) mg/dL Creatinine 0.8 (0.6-1.0) mg/dL Est Cr Clr Drug Dosing 48.80 mL/min Estimated GFR (MDRD) > 60 (>60) Glucose 99 (74-106) mg/dL Lactic Acid 1.0 (0.4-2.0) mmol/L Calcium 8.9 D (8.5-10.1) mg/dL Total Bilirubin (0.2-1.0) mg/dL AST (15-37) U/L ALT (12-78) U/L Alkaline Phosphatase (46-116) U/L Troponin I < 0.017 (0.000-0.056) ng/mL Total Protein (6.4-8.2) g/dL Albumin (3.4-5.0) g/dL Globulin (2.3-3.5) g/dL Albumin/Globulin Ratio (1.2-2.2) Urine Color (YELLOW) Urine Appearance (CLEAR) Urine pH (5.0-8.0) Ur Specific [place] (1.008-1.030) Urine Protein (NEGATIVE) mg/dL Urine Glucose (UA) (NEGATIVE) mg/dL Urine Ketones (NEGATIVE) mg/dL Urine Occult Blood (NEGATIVE) Urine Nitrite (NEGATIVE) Urine Bilirubin (NEGATIVE) Urine Urobilinogen (0.2-1.0) EU/dL Ur Leukocyte Esterase (NEGATIVE) Urine RBC (0-5) Urine WBC (0-5) Ur Epithelial Cells Amorphous Sediment Urine Bacteria Urine Mucus 06/17/20 06/18/20 06/18/20 Range/Units 18:50 02:03 04:06 WBC (4.5-11.0) K/uL RBC (3.30-5.50) M/uL Hgb (12.0-15.0) g/dL Hct (36.0-48.0) % MCV (80-98) fL MCH (27-31) pg MCHC (32-36) % Plt Count (150-400) K/uL Sodium 146 (140-148) mmol/L Potassium 3.8 (3.6-5.2) mmol/L Chloride 106 (100-108) mmol/L Carbon Dioxide 28 (21-32) mmol/L Anion Gap 12.4 (5.0-14.0) mmol/L BUN 17 (7-18) mg/dL Creatinine 0.9 (0.6-1.0) mg/dL Est Cr Clr Drug Dosing 43.37 mL/min Estimated GFR (MDRD) > 60 (>60) Glucose 246 H (74-106) mg/dL Lactic Acid (0.4-2.0) mmol/L Calcium 8.1 L (8.5-10.1) mg/dL Total Bilirubin 0.2 D (0.2-1.0) mg/dL AST 25 D (15-37) U/L ALT 35 D (12-78) U/L Alkaline Phosphatase 59 (46-116) U/L Troponin I (0.000-0.056) ng/mL Total Protein 5.9 L (6.4-8.2) g/dL Albumin 3.3 L (3.4-5.0) g/dL Globulin 2.6 (2.3-3.5) g/dL Albumin/Globulin Ratio 1.3 (1.2-2.2) Urine Color Yellow Yellow (YELLOW) Urine Appearance Clear Clear (CLEAR) Urine pH 5.5 5.5 (5.0-8.0) Ur Specific [place] 1.010 1.025 (1.008-1.030) Urine Protein Negative Negative (NEGATIVE) mg/dL Urine Glucose (UA) Negative 250 H (NEGATIVE) mg/dL Urine Ketones Negative Negative (NEGATIVE) mg/dL Urine Occult Blood Negative Negative (NEGATIVE) Urine Nitrite Negative Negative (NEGATIVE) Urine Bilirubin Negative Negative (NEGATIVE) Urine Urobilinogen 0.2 0.2 (0.2-1.0) EU/dL Ur Leukocyte Esterase Small H Negative (NEGATIVE) Urine RBC 0-5 (0-5) Urine WBC 0-5 (0-5) Ur Epithelial Cells Rare Amorphous Sediment Not seen Urine Bacteria Rare Urine Mucus Not seen 06/18/20 Range/Units 07:55 WBC (4.5-11.0) K/uL RBC (3.30-5.50) M/uL Hgb (12.0-15.0) g/dL Hct (36.0-48.0) % MCV (80-98) fL MCH (27-31) pg MCHC (32-36) % Plt Count (150-400) K/uL Sodium 144 (140-148) mmol/L Potassium 3.7 (3.6-5.2) mmol/L Chloride 104 (100-108) mmol/L Carbon Dioxide 27 (21-32) mmol/L Anion Gap 12.7 (5.0-14.0) mmol/L BUN 16 (7-18) mg/dL Creatinine 0.8 (0.6-1.0) mg/dL Est Cr Clr Drug Dosing 48.80 mL/min Estimated GFR (MDRD) > 60 (>60) Glucose 154 H (74-106) mg/dL Lactic Acid (0.4-2.0) mmol/L Calcium 8.2 L (8.5-10.1) mg/dL Total Bilirubin 0.2 (0.2-1.0) mg/dL AST 22 (15-37) U/L ALT 34 (12-78) U/L Alkaline Phosphatase 55 (46-116) U/L Troponin I (0.000-0.056) ng/mL Total Protein 5.9 L (6.4-8.2) g/dL Albumin 3.2 L (3.4-5.0) g/dL Globulin 2.7 (2.3-3.5) g/dL Albumin/Globulin Ratio 1.2 (1.2-2.2) Urine Color (YELLOW) Urine Appearance (CLEAR) Urine pH (5.0-8.0) Ur Specific [place] (1.008-1.030) Urine Protein (NEGATIVE) mg/dL Urine Glucose (UA) (NEGATIVE) mg/dL Urine Ketones (NEGATIVE) mg/dL Urine Occult Blood (NEGATIVE) Urine Nitrite (NEGATIVE) Urine Bilirubin (NEGATIVE) Urine Urobilinogen (0.2-1.0) EU/dL Ur Leukocyte Esterase (NEGATIVE) Urine RBC (0-5) Urine WBC (0-5) Ur Epithelial Cells Amorphous Sediment Urine Bacteria Urine Mucus Med Orders - Current: Current Medications Acetaminophen (Acetaminophen 325 Mg Tab) 650 mg PO Q4H PRN PRN Reason: Pain (Mild 1-3)/fever Albuterol/Ipratropium (Albuterol/Ipratropium 3.0-0.5 Mg/3 Ml Neb Soln) 3 ml NEB Q4H PRN PRN Reason: Cough Amlodipine Besylate (Amlodipine 5 Mg Tab) 2.5 mg PO DAILY [facility] Last Admin: 06/18/20 09:10 Dose: 2.5 mg Documented by: Budesonide (Budesonide 0.5 Mg/2 Ml Neb Susp) 0.5 mg NEB BIDRT [facility] Last Admin: 06/18/20 07:43 Dose: 0.5 mg Documented by: Folic Acid (Folic Acid 1 Mg Tab) 1 mg PO DAILY [facility] Last Admin: 06/18/20 09:09 Dose: 1 mg Documented by: Gabapentin (Gabapentin 300 Mg Cap) 600 mg PO BEDTIME [facility] Gabapentin (Gabapentin 300 Mg Cap) 300 mg PO BID@0800,1400 [facility] Last Admin: 06/18/20 09:08 Dose: 300 mg Documented by: Promethazine HCl 6.25 mg/ (Sodium Chloride) 50.25 mls @ 200 mls/hr IV Q6H PRN PRN Reason: Nausea/Vomiting Ibuprofen (Ibuprofen 600 Mg Tab) 600 mg PO Q6H PRN PRN Reason: Pain/Fever Last Admin: 06/18/20 09:13 Dose: 600 mg Documented by: Lisinopril (Lisinopril 20 Mg Tab) 20 mg PO DAILY [facility] Last Admin: 06/18/20 09:09 Dose: 20 mg Documented by: Morphine Sulfate (Morphine 2 Mg/Ml Syringe) 2 mg IVPUSH Q2H PRN PRN Reason: Pain (severe 7-10) Ondansetron HCl (Ondansetron 4 Mg Tab.Dis) 4 mg PO Q6H PRN PRN Reason: Nausea able to take PO Oxycodone/Acetaminophen (Acetaminophen/Oxycodone 325-5 Mg Tab) 1 tab PO Q4H PRN PRN Reason: Pain (moderate 4-6) Pantoprazole Sodium (Pantoprazole 40 Mg Tab.Cr) 40 mg PO ACBREAKFAST [facility] Last Admin: 06/18/20 09:08 Dose: 40 mg Documented by: Pentoxifylline (Pentoxifylline 400 Mg Tab.Er) 400 mg PO TIDMEALS [facility] Last Admin: 06/18/20 09:09 Dose: 400 mg Documented by: Rosuvastatin Calcium (Rosuvastatin 10 Mg Tab) 10 mg PO DAILY [facility] Last Admin: 06/18/20 09:09 Dose: 10 mg Documented by: Discontinued Medications Carvedilol (Carvedilol 3.125 Mg Tab) 6.25 mg PO ONETIME ONE Stop: 06/17/20 21:34 Last Admin: 06/18/20 00:02 Dose: 6.25 mg Documented by: Dexamethasone (Dexamethasone 4 Mg/Ml Sdv) 10 mg IVPUSH ONETIME ONE Stop: 06/17/20 18:12 Last Admin: 06/17/20 18:40 Dose: 10 mg Documented by: Diphenhydramine HCl (Diphenhydramine 50 Mg/Ml Sdv) 25 mg IVPUSH ONETIME ONE Stop: 06/17/20 18:12 Last Admin: 06/17/20 18:36 Dose: 25 mg Documented by: Magnesium Sulfate (Magnesium Sulfate In Water 2 Gm/50 Ml) 2 gm in 50 mls @ 25 mls/hr IV ONETIME ONE Stop: 06/17/20 20:10 Last Admin: 06/17/20 18:43 Dose: 25 mls/hr Documented by: Sodium Chloride (Normal Saline) 1,000 mls @ 999 mls/hr IV .BOLUS ONE Stop: 06/17/20 19:11 Last Admin: 06/17/20 18:48 Dose: 999 mls/hr Documented by: Dextrose/Water (Dextrose 5% In Water) 1,000 mls @ 125 mls/hr IV ASDIRECTED [facility] Last Admin: 06/17/20 19:23 Dose: 125 mls/hr Documented by: Dextrose/Water (Dextrose 5% In Water) 1,000 mls @ 100 mls/hr IV ASDIRECTED [facility] Last Admin: 06/18/20 03:38 Dose: 100 mls/hr Documented by: Prochlorperazine Edisylate (Prochlorperazine 10 Mg/2 Ml Sdv) 10 mg IVPUSH ONETIME ONE Stop: 06/17/20 18:12 Last Admin: 06/17/20 18:38 Dose: 10 mg Documented by: - Exam General: Alert, Oriented, Cooperative, No Acute Distress Lungs: Clear to Auscultation, Normal Respiratory Effort Cardiovascular: Regular Rate, Regular Rhythm, No Murmurs GI/Abdominal Exam: Soft, Non-Tender, No Organomegaly, No Distention Extremities: Non-Tender, No Pedal Edema - Patient Data Lab Results Last 24 hrs: Laboratory Results - last 24 hr 06/17/20 06/17/20 06/17/20 Range/Units 17:48 17:52 17:52 WBC 8.2 (4.5-11.0) K/uL RBC 4.11 (3.30-5.50) M/uL Hgb 12.3 (12.0-15.0) g/dL Hct 39.4 (36.0-48.0) % MCV 96 (80-98) fL MCH 30 (27-31) pg MCHC 31 L (32-36) % Plt Count 216 (150-400) K/uL Sodium 150 H (140-148) mmol/L Potassium 3.7 (3.6-5.2) mmol/L Chloride 107 (100-108) mmol/L Carbon Dioxide 29 (21-32) mmol/L Anion Gap 17.7 H (5.0-14.0) mmol/L BUN 16 (7-18) mg/dL Creatinine 0.8 (0.6-1.0) mg/dL Est Cr Clr Drug Dosing 48.80 mL/min Estimated GFR (MDRD) > 60 (>60) Glucose 99 (74-106) mg/dL Lactic Acid 1.0 (0.4-2.0) mmol/L Calcium 8.9 D (8.5-10.1) mg/dL Total Bilirubin (0.2-1.0) mg/dL AST (15-37) U/L ALT (12-78) U/L Alkaline Phosphatase (46-116) U/L Troponin I < 0.017 (0.000-0.056) ng/mL Total Protein (6.4-8.2) g/dL Albumin (3.4-5.0) g/dL Globulin (2.3-3.5) g/dL Albumin/Globulin Ratio (1.2-2.2) Urine Color (YELLOW) Urine Appearance (CLEAR) Urine pH (5.0-8.0) Ur Specific [place] (1.008-1.030) Urine Protein (NEGATIVE) mg/dL Urine Glucose (UA) (NEGATIVE) mg/dL Urine Ketones (NEGATIVE) mg/dL Urine Occult Blood (NEGATIVE) Urine Nitrite (NEGATIVE) Urine Bilirubin (NEGATIVE) Urine Urobilinogen (0.2-1.0) EU/dL Ur Leukocyte Esterase (NEGATIVE) Urine RBC (0-5) Urine WBC (0-5) Ur Epithelial Cells Amorphous Sediment Urine Bacteria Urine Mucus 06/17/20 06/18/20 06/18/20 Range/Units 18:50 02:03 04:06 WBC (4.5-11.0) K/uL RBC (3.30-5.50) M/uL Hgb (12.0-15.0) g/dL Hct (36.0-48.0) % MCV (80-98) fL MCH (27-31) pg MCHC (32-36) % Plt Count (150-400) K/uL Sodium 146 (140-148) mmol/L Potassium 3.8 (3.6-5.2) mmol/L Chloride 106 (100-108) mmol/L Carbon Dioxide 28 (21-32) mmol/L Anion Gap 12.4 (5.0-14.0) mmol/L BUN 17 (7-18) mg/dL Creatinine 0.9 (0.6-1.0) mg/dL Est Cr Clr Drug Dosing 43.37 mL/min Estimated GFR (MDRD) > 60 (>60) Glucose 246 H (74-106) mg/dL Lactic Acid (0.4-2.0) mmol/L Calcium 8.1 L (8.5-10.1) mg/dL Total Bilirubin 0.2 D (0.2-1.0) mg/dL AST 25 D (15-37) U/L ALT 35 D (12-78) U/L Alkaline Phosphatase 59 (46-116) U/L Troponin I (0.000-0.056) ng/mL Total Protein 5.9 L (6.4-8.2) g/dL Albumin 3.3 L (3.4-5.0) g/dL Globulin 2.6 (2.3-3.5) g/dL Albumin/Globulin Ratio 1.3 (1.2-2.2) Urine Color Yellow Yellow (YELLOW) Urine Appearance Clear Clear (CLEAR) Urine pH 5.5 5.5 (5.0-8.0) Ur Specific [place] 1.010 1.025 (1.008-1.030) Urine Protein Negative Negative (NEGATIVE) mg/dL Urine Glucose (UA) Negative 250 H (NEGATIVE) mg/dL Urine Ketones Negative Negative (NEGATIVE) mg/dL Urine Occult Blood Negative Negative (NEGATIVE) Urine Nitrite Negative Negative (NEGATIVE) Urine Bilirubin Negative Negative (NEGATIVE) Urine Urobilinogen 0.2 0.2 (0.2-1.0) EU/dL Ur Leukocyte Esterase Small H Negative (NEGATIVE) Urine RBC 0-5 (0-5) Urine WBC 0-5 (0-5) Ur Epithelial Cells Rare Amorphous Sediment Not seen Urine Bacteria Rare Urine Mucus Not seen 06/18/20 Range/Units 07:55 WBC (4.5-11.0) K/uL RBC (3.30-5.50) M/uL Hgb (12.0-15.0) g/dL Hct (36.0-48.0) % MCV (80-98) fL MCH (27-31) pg MCHC (32-36) % Plt Count (150-400) K/uL Sodium 144 (140-148) mmol/L Potassium 3.7 (3.6-5.2) mmol/L Chloride 104 (100-108) mmol/L Carbon Dioxide 27 (21-32) mmol/L Anion Gap 12.7 (5.0-14.0) mmol/L BUN 16 (7-18) mg/dL Creatinine 0.8 (0.6-1.0) mg/dL Est Cr Clr Drug Dosing 48.80 mL/min Estimated GFR (MDRD) > 60 (>60) Glucose 154 H (74-106) mg/dL Lactic Acid (0.4-2.0) mmol/L Calcium 8.2 L (8.5-10.1) mg/dL Total Bilirubin 0.2 (0.2-1.0) mg/dL AST 22 (15-37) U/L ALT 34 (12-78) U/L Alkaline Phosphatase 55 (46-116) U/L Troponin I (0.000-0.056) ng/mL Total Protein 5.9 L (6.4-8.2) g/dL Albumin 3.2 L (3.4-5.0) g/dL Globulin 2.7 (2.3-3.5) g/dL Albumin/Globulin Ratio 1.2 (1.2-2.2) Urine Color (YELLOW) Urine Appearance (CLEAR) Urine pH (5.0-8.0) Ur Specific [place] (1.008-1.030) Urine Protein (NEGATIVE) mg/dL Urine Glucose (UA) (NEGATIVE) mg/dL Urine Ketones (NEGATIVE) mg/dL Urine Occult Blood (NEGATIVE) Urine Nitrite (NEGATIVE) Urine Bilirubin (NEGATIVE) Urine Urobilinogen (0.2-1.0) EU/dL Ur Leukocyte Esterase (NEGATIVE) Urine RBC (0-5) Urine WBC (0-5) Ur Epithelial Cells Amorphous Sediment Urine Bacteria Urine Mucus Result Diagrams: 06/17/20 17:52 06/18/20 07:55 Sepsis Event Note - Evaluation Sepsis Screening Result: No Definite Risk - Focused Exam Vital Signs: Vital Signs Temp Pulse Pulse Resp BP BP Pulse Ox 06/18/20 09:10 118/47 L 06/18/20 09:09 118/47 L 06/18/20 07:00 97.9 F 53 L 18 118/47 L 92 L 06/18/20 03:39 96.8 F L 57 L 18 108/45 L 97 06/18/20 01:05 95 06/18/20 00:02 74 143/70 H 06/17/20 23:31 95 - Problem List Review Problem List Initiated/Reviewed/Updated: Yes - My Orders Last 24 Hours: My Active Orders 06/18/20 11:08 Convert IV to Saline Lock [OM.PC] Routine 06/19/20 05:00 BASIC METABOLIC PANEL,BMP [CHEM] Timed - Plan Plan:: ASSESSMENT AND PLAN HYPONATREMIA-please secondary to free water deficit. No other obvious etiology identified to this point. This has resolved with management through the night. -Discontinue D5w -chandni Na in am CONFUSION-resolved -Continue to monitor MAINTENANCE ISSUES -DVT prophylaxis; Lovenox 40 mg subcu daily -GI prophylaxis; not indicated -Sandoval catheter; not indicated -Nutrition; regular diet -Nicotine dependence; not required CODE STATUS-FULL CODE ADMISSION STATUS-patient will be admitted to inpatient status, expect at least a 2 night hospital stay for evaluation and management of problems as outlined above. At the time of this admission I do not reasonably expected evaluation and management of this problem will require more than a 96 hour hospital stay. DISPOSITION-anticipate discharge to home after the hospital stay. PRIMARY CARE PROVIDER-Dr. Bobo
[2020-06-18] MEDS: Enoxaparin 40 MG/0.4 ML Syringe SUBCUT SCH (12:53)
[2020-06-18] MEDS: Ondansetron 4 MG Tab.DIS PO PRN (20:30)
[2020-06-18] MEDS: Morphine 2 MG/ML SYRINGE IVPUSH PRN (20:30)
[2020-06-18] MEDS ORDERED: diphenhydrAMINE 50 MG/ML SDV IVPUSH PRN (20:58)
[2020-06-18] MEDS: Carvedilol 3.125 MG Tab PO SCH (21:54)
[2020-06-19] MEDS: Morphine 2 MG/ML SYRINGE IVPUSH PRN ×4 (01:27→20:32)
[2020-06-19] MEDS: Ibuprofen 600 MG Tab PO PRN (05:40)
[2020-06-19] MEDS: Budesonide 0.5 MG/2 ML Neb Susp NEB SCH ×2 (07:13→22:09)
[2020-06-19] MEDS: Pentoxifylline 400 MG Tab.ER PO SCH ×3 (07:39→17:22)
[2020-06-19] MEDS: Gabapentin 300 MG Cap PO SCH ×3 (07:39→22:09)
[2020-06-19] MEDS: Pantoprazole 40 MG Tab.CR PO SCH (07:40)
[2020-06-19] MEDS: Folic Acid 1 MG Tab PO SCH (09:12)
[2020-06-19] MEDS: Rosuvastatin 10 MG Tab PO SCH (09:12)
[2020-06-19] MEDS: Enoxaparin 40 MG/0.4 ML Syringe SUBCUT SCH (09:13)
[2020-06-19] MEDS: Lisinopril 20 MG Tab PO SCH (09:13)
[2020-06-19] MEDS: amLODIPine 5 MG Tab PO SCH (09:13)
[2020-06-19] MEDS ORDERED: Morphine 2 MG/ML SYRINGE IVPUSH ONE (10:36)
--- NOTE | 2020-06-19 11:22 | PCM.PN ---
- General Info Date of Service: 06/19/20 Subjective Update: Ms. Sims has unfortunately developed severe headache during the night. She does have a prior history of migraine headaches but has not had a headache like this for many years. It has improved somewhat over the past few hours since she has received intermittent doses of IV morphine. She has had no further episodes of confusion or other significant abnormalities. Hypernatremia has resolved. - Review of Systems General: Reports: No Symptoms HEENT: Reports: Headaches Cardiovascular: Reports: No Symptoms Gastrointestinal: Reports: No Symptoms Genitourinary: Reports: No Symptoms Neurological: Reports: Headache. Denies: Confusion, Dizziness, Numbness, Difficulty Walking, Weakness, Change in Speech - Patient Data Vitals - Most Recent: Last Vital Signs Temp 97.2 F 06/19/20 08:00 Pulse 51 L 06/19/20 11:09 Resp 16 06/19/20 11:09 BP 110/40 L 06/19/20 11:09 Pulse Ox 95 06/19/20 11:09 Weight - Most Recent: 150 lb 1.6 oz I&O - Last 24 Hours: Intake & Output 06/18/20 06/19/20 06/19/20 22:59 06:59 14:59 Intake Total 240 300 Output Total 900 2000 200 Balance -660 -2000 100 Lab Results Last 24 Hours: Laboratory Results - last 24 hr 06/19/20 Range/Units 05:56 Sodium 146 (140-148) mmol/L Potassium 4.3 (3.6-5.2) mmol/L Chloride 104 (100-108) mmol/L Carbon Dioxide 30 (21-32) mmol/L Anion Gap 11.6 (5.0-14.0) mmol/L BUN 17 (7-18) mg/dL Creatinine 0.9 (0.6-1.0) mg/dL Est Cr Clr Drug Dosing 43.37 mL/min Estimated GFR (MDRD) > 60 (>60) Glucose 100 (74-106) mg/dL Calcium 8.0 L (8.5-10.1) mg/dL Med Orders - Current: Current Medications Acetaminophen (Acetaminophen 325 Mg Tab) 650 mg PO Q4H PRN PRN Reason: Pain (Mild 1-3)/fever Last Admin: 06/19/20 07:44 Dose: 650 mg Documented by: Albuterol/Ipratropium (Albuterol/Ipratropium 3.0-0.5 Mg/3 Ml Neb Soln) 3 ml NEB Q4H PRN PRN Reason: Cough Amlodipine Besylate (Amlodipine 5 Mg Tab) 2.5 mg PO DAILY [facility] Last Admin: 06/19/20 09:13 Dose: 2.5 mg Documented by: Budesonide (Budesonide 0.5 Mg/2 Ml Neb Susp) 0.5 mg NEB BIDRT [facility] Last Admin: 06/19/20 07:13 Dose: 0.5 mg Documented by: Carvedilol (Carvedilol 3.125 Mg Tab) 6.25 mg PO BIDMEALS [facility] Last Admin: 06/18/20 21:54 Dose: 6.25 mg Documented by: Diphenhydramine HCl (Diphenhydramine 50 Mg/Ml Sdv) 25 mg IVPUSH Q4H PRN PRN Reason: Headache Enoxaparin Sodium (Enoxaparin 40 Mg/0.4 Ml Syringe) 40 mg SUBCUT DAILY [facility] Last Admin: 06/19/20 09:13 Dose: 40 mg Documented by: Folic Acid (Folic Acid 1 Mg Tab) 1 mg PO DAILY [facility] Last Admin: 06/19/20 09:12 Dose: 1 mg Documented by: Gabapentin (Gabapentin 300 Mg Cap) 600 mg PO BEDTIME [facility] Last Admin: 06/18/20 20:33 Dose: 600 mg Documented by: Gabapentin (Gabapentin 300 Mg Cap) 300 mg PO BID@0800,1400 [facility] Last Admin: 06/19/20 07:39 Dose: 300 mg Documented by: Promethazine HCl 6.25 mg/ (Sodium Chloride) 50.25 mls @ 200 mls/hr IV Q6H PRN PRN Reason: Nausea/Vomiting Ibuprofen (Ibuprofen 600 Mg Tab) 600 mg PO Q6H PRN PRN Reason: Pain/Fever Last Admin: 06/19/20 05:40 Dose: 600 mg Documented by: Lisinopril (Lisinopril 20 Mg Tab) 20 mg PO DAILY [facility] Last Admin: 06/19/20 09:13 Dose: 20 mg Documented by: Morphine Sulfate (Morphine 2 Mg/Ml Syringe) 2 mg IVPUSH Q1H PRN PRN Reason: Pain (severe 7-10) Ondansetron HCl (Ondansetron 4 Mg Tab.Dis) 4 mg PO Q6H PRN PRN Reason: Nausea able to take PO Last Admin: 06/18/20 20:30 Dose: 4 mg Documented by: Oxycodone/Acetaminophen (Acetaminophen/Oxycodone 325-5 Mg Tab) 1 tab PO Q4H PRN PRN Reason: Pain (moderate 4-6) Last Admin: 06/18/20 16:20 Dose: 1 tab Documented by: Pantoprazole Sodium (Pantoprazole 40 Mg Tab.Cr) 40 mg PO ACBREAKFAST [facility] Last Admin: 06/19/20 07:40 Dose: 40 mg Documented by: Pentoxifylline (Pentoxifylline 400 Mg Tab.Er) 400 mg PO TIDMEALS [facility] Last Admin: 06/19/20 11:08 Dose: 400 mg Documented by: Rosuvastatin Calcium (Rosuvastatin 10 Mg Tab) 10 mg PO DAILY [facility] Last Admin: 06/19/20 09:12 Dose: 10 mg Documented by: Discontinued Medications Carvedilol (Carvedilol 3.125 Mg Tab) 6.25 mg PO ONETIME ONE Stop: 06/17/20 21:34 Last Admin: 06/18/20 00:02 Dose: 6.25 mg Documented by: Dexamethasone (Dexamethasone 4 Mg/Ml Sdv) 10 mg IVPUSH ONETIME ONE Stop: 06/17/20 18:12 Last Admin: 06/17/20 18:40 Dose: 10 mg Documented by: Diphenhydramine HCl (Diphenhydramine 50 Mg/Ml Sdv) 25 mg IVPUSH ONETIME ONE Stop: 06/17/20 18:12 Last Admin: 06/17/20 18:36 Dose: 25 mg Documented by: Magnesium Sulfate (Magnesium Sulfate In Water 2 Gm/50 Ml) 2 gm in 50 mls @ 25 mls/hr IV ONETIME ONE Stop: 06/17/20 20:10 Last Admin: 06/17/20 18:43 Dose: 25 mls/hr Documented by: Sodium Chloride (Normal Saline) 1,000 mls @ 999 mls/hr IV .BOLUS ONE Stop: 06/17/20 19:11 Last Admin: 06/17/20 18:48 Dose: 999 mls/hr Documented by: Dextrose/Water (Dextrose 5% In Water) 1,000 mls @ 125 mls/hr IV ASDIRECTED [facility] Last Admin: 06/17/20 19:23 Dose: 125 mls/hr Documented by: Dextrose/Water (Dextrose 5% In Water) 1,000 mls @ 100 mls/hr IV ASDIRECTED [facility] Last Admin: 06/18/20 03:38 Dose: 100 mls/hr Documented by: Morphine Sulfate (Morphine 2 Mg/Ml Syringe) 2 mg IVPUSH Q2H PRN PRN Reason: Pain (severe 7-10) Last Admin: 06/19/20 09:05 Dose: 2 mg Documented by: Morphine Sulfate (Morphine 2 Mg/Ml Syringe) 2 mg IVPUSH ONETIME ONE Stop: 06/19/20 10:37 Last Admin: 06/19/20 11:05 Dose: 2 mg Documented by: Prochlorperazine Edisylate (Prochlorperazine 10 Mg/2 Ml Sdv) 10 mg IVPUSH ONETIME ONE Stop: 06/17/20 18:12 Last Admin: 06/17/20 18:38 Dose: 10 mg Documented by: - Exam Quality Assessment: DVT Prophylaxis General: Alert, Oriented, Cooperative, Moderate Distress Lungs: Clear to Auscultation, Normal Respiratory Effort Cardiovascular: Regular Rate, Regular Rhythm, No Murmurs GI/Abdominal Exam: Soft, Non-Tender, No Organomegaly, No Distention Extremities: Non-Tender, No Pedal Edema - Patient Data Lab Results Last 24 hrs: Laboratory Results - last 24 hr 06/19/20 Range/Units 05:56 Sodium 146 (140-148) mmol/L Potassium 4.3 (3.6-5.2) mmol/L Chloride 104 (100-108) mmol/L Carbon Dioxide 30 (21-32) mmol/L Anion Gap 11.6 (5.0-14.0) mmol/L BUN 17 (7-18) mg/dL Creatinine 0.9 (0.6-1.0) mg/dL Est Cr Clr Drug Dosing 43.37 mL/min Estimated GFR (MDRD) > 60 (>60) Glucose 100 (74-106) mg/dL Calcium 8.0 L (8.5-10.1) mg/dL Result Diagrams: 06/17/20 17:52 06/19/20 05:56 Sepsis Event Note - Evaluation Sepsis Screening Result: No Definite Risk - Focused Exam Vital Signs: Vital Signs Temp Pulse Resp BP BP Pulse Ox 06/19/20 11:09 51 L 16 110/40 L 95 06/19/20 09:13 113/47 L 06/19/20 08:00 97.2 F 49 L 18 113/47 L 96 06/19/20 06:13 46 L 107/47 L 06/19/20 02:26 97.1 F 54 L 15 98/42 L 94 L - Problem List Review Problem List Initiated/Reviewed/Updated: Yes - My Orders Last 24 Hours: My Active Orders 06/18/20 11:08 Convert IV to Saline Lock [OM.PC] Routine 06/18/20 11:30 Enoxaparin [Lovenox] 40 mg SUBCUT DAILY 06/19/20 11:17 Morphine 2 mg IVPUSH Q1H PRN - Plan Plan:: ASSESSMENT AND PLAN HYPONATREMIA-resolved HEADACHE-new since yesterday, no associated neurologic deficits. Prior history of migraine headaches, very similar to what she is experiencing now -Morphine as needed CONFUSION-resolved -Continue to monitor MAINTENANCE ISSUES -DVT prophylaxis; Lovenox 40 mg subcu daily -GI prophylaxis; not indicated -Sandoval catheter; not indicated -Nutrition; regular diet -Nicotine dependence; not required CODE STATUS-FULL CODE ADMISSION STATUS-patient will be admitted to inpatient status, expect at least a 2 night hospital stay for evaluation and management of problems as outlined above. At the time of this admission I do not reasonably expected evaluation and management of this problem will require more than a 96 hour hospital stay. DISPOSITION-anticipate discharge to home after the hospital stay. PRIMARY CARE PROVIDER-Dr. Bobo
[2020-06-19] MEDS: Ondansetron 4 MG Tab.DIS PO PRN (13:46)
[2020-06-19] MEDS: Carvedilol 3.125 MG Tab PO SCH (17:34)
[2020-06-19] MEDS ORDERED: Ondansetron 4 MG Tab.DIS PO ONE (17:36)
[2020-06-20] MEDS: Morphine 2 MG/ML SYRINGE IVPUSH PRN (04:01)
[2020-06-20] MEDS: Budesonide 0.5 MG/2 ML Neb Susp NEB SCH (07:07)
[2020-06-20 07:36] VITALS: BP 107/48; PULSE 43
[2020-06-20] MEDS: Folic Acid 1 MG Tab PO SCH (08:19)
[2020-06-20] MEDS: Pantoprazole 40 MG Tab.CR PO SCH (08:19)
[2020-06-20] MEDS: Pentoxifylline 400 MG Tab.ER PO SCH (08:19)
[2020-06-20] MEDS: Rosuvastatin 10 MG Tab PO SCH (08:19)
[2020-06-20] MEDS: Gabapentin 300 MG Cap PO SCH (08:19)
[2020-06-20] MEDS: Enoxaparin 40 MG/0.4 ML Syringe SUBCUT SCH (08:20)
[2020-06-20] MEDS: Lisinopril 20 MG Tab PO SCH (10:54)
[2020-06-20] MEDS: amLODIPine 5 MG Tab PO SCH (10:54)
[2020-06-20] MEDS: Carvedilol 3.125 MG Tab PO SCH (10:55)
--- NOTE | 2020-06-20 11:02 | PCM.DCSUM1 ---
Discharge Summary - Hospital Course Brief History: 75-year-old female with recent history of peripheral arterial disease involving the left foot as well as neuropathy who presented with acute onset of weakness and confusion. She was admitted for management of hypernatremia and suspected dehydration. Diagnosis: Stroke: No - Discharge Data Discharge Date: 06/20/20 Discharge Disposition: Home, Self-Care 01 Condition: Good - Referral to Home Health Primary Care Physician: Gianni Bobo MD - Discharge Diagnosis/Problem(s) (1) Acute hypernatremia SNOMED Code(s): 1983244 ICD Code: E87.0 - HYPEROSMOLALITY AND HYPERNATREMIA Status: Acute Priority: High Onset Date: 06/17/20 (2) Migraine aura without headache (migraine equivalents) SNOMED Code(s): 425897178 ICD Code: G43.109 - MIGRAINE WITH AURA, NOT INTRACTABLE, W/O STATUS MIGRAINOSUS Status: Acute Priority: High (3) PAD (peripheral artery disease) SNOMED Code(s): 403702866 ICD Code: I73.9 - PERIPHERAL VASCULAR DISEASE, UNSPECIFIED Status: Acute - Patient Summary/Data Hospital Course: Princess presented to the emergency room with acute onset of weakness and confusion. Work-up in the emergency room was reassuring other than mild dehydration and hypernatremia. She did receive some IV fluids including D5W and was admitted to the hospital for further management. Overnight following admission her sodium level normalized. Her mental status improved and had normalized. Strength was improving. IV fluids were discontinued and sodium received additional monitoring. The sodium did remain stable. Mental status remained stable. Unfortunately she developed a severe migraine and required additional management for this. Her migraine and nausea have now resolved. She does not feel back to baseline but is feeling better. Strength is better but not quite back to baseline. Sodium has remained normal. During the hospital stay we have noted mild bradycardia as well as borderline hypotension. She was recently started on amlodipine and more recently on pentoxifylline to help with her peripheral arterial disease. I suspect there was some sort of medication interaction that potentiated her presenting signs and symptoms. With the bradycardia I am going to stop the carvedilol. She would benefit from an early recheck of blood pressure and sodium. She feels well enough to go home at this time and feels like she is safe to go back to work tomorrow. She will be discharged home with her daughter. - Patient Instructions Diet: Usual Diet as Tolerated Activity: As Tolerated Activity, Other: may return to work 06/21/20 Showering/Bathing: May Shower Notify Provider of: Fever, Nausea and/or Vomiting Other/Special Instructions: 1. You were in the hospital for management of confusion and elevated sodium. I suspect that your signs and symptoms were related to medication interactions leading to low blood pressure. I recommend that you stop taking carvedilol. I chose this medication because of low blood pressure and low heart rate encountered during the hospital stay. Your sodium level has normalized with IV fluid hydration. I recommend early follow-up with Dr. Gianni Bobo to recheck your blood pressure and sodium. 2. Continue your other home medications as previously prescribed. - Discharge Plan *PRESCRIPTION DRUG MONITORING PROGRAM REVIEWED*: Not Applicable *COPY OF PRESCRIPTION DRUG MONITORING REPORT IN PATIENT MAURICE: Not Applicable Home Medications: Home Meds Albuterol/Ipratropium [Combivent] 1 puff INH Q4H PRN 08/03/13 [History] Budesonide [Pulmicort] 1 vial NEB Q12H PRN 08/03/13 [History] Calcium Carbonate/Vitamin D3 [Calcium 600-Vit D3 200 Tablet] 1 each PO BID 08/03/13 [History] Cholecalciferol (Vitamin D3) [Vitamin D3] 50,000 unit PO MOWEFR 08/03/13 [History] Cyanocobalamin (Vitamin B-12) [Vitamin B-12] 1,000 mcg PO BID 08/03/13 [History] Folic Acid 1 mg PO DAILY 08/03/13 [History] Mometasone Furoate [Nasonex [place]] 1 spray EZIO DAILY PRN 08/03/13 [History] Montelukast [Singulair] 10 mg PO BEDTIME 08/03/13 [History] Multivitamin W/Iron, Minerals [Multivitamins with Iron] 1 each PO DAILY 08/03/13 [History] Aspirin [Low Dose Aspirin EC] 81 mg PO DAILY 04/27/15 [History] ZOLMitriptan [Zomig] 5 mg PO ASDIRECTED PRN 04/27/15 [History] Gabapentin [Neurontin] 300 mg PO BID 01/23/17 [History] Gabapentin [Neurontin] 600 mg PO BEDTIME 03/31/19 [History] Hydrocortisone Acetate [Anusol-Hc] 1 supp RECTAL BID PRN 03/31/19 [History] Albuterol/Ipratropium [DuoNeb 3.0-0.5 MG/3 ML] 3 ml INH Q4H PRN 09/09/19 [History] clonazePAM [Clonazepam] 0.125 mg SL BEDTIME PRN 09/11/19 [History] Acetaminophen [Tylenol] 650 mg PO Q6HR tablet 09/15/19 [Rx] lisinopriL [Lisinopril] 20 mg PO DAILY 04/20/20 [History] amLODIPine [Norvasc] 2.5 mg PO DAILY 05/04/20 [History] Pentoxifylline 400 mg PO TID 06/15/20 [History] Rosuvastatin [Crestor] 10 mg PO DAILY 06/15/20 [History] Patient Handouts: Hypernatremia, [id number], Weakness, [id number] Referrals: Gianni Bobo MD [Primary Care Provider] - 06/24/20 9:00 am (3-5 days - f/u hospital stay for hypernatremia) - Discharge Summary/Plan Comment DC Time >30 min.: No - Patient Data Vitals - Most Recent: Last Vital Signs Temp 36.3 C 06/20/20 07:00 Pulse 43 L 06/20/20 07:00 Resp 18 06/20/20 07:00 BP 107/48 L 06/20/20 07:00 Pulse Ox 99 06/20/20 07:09 Weight - Most Recent: 68.039 kg I&O - Last 24 hours: Intake & Output 06/19/20 06/20/20 06/20/20 22:59 06:59 14:59 Intake Total 320 300 Output Total 400 1700 Balance -80 -1700 300 Med Orders - Current: Current Medications Acetaminophen (Acetaminophen 325 Mg Tab) 650 mg PO Q4H PRN PRN Reason: Pain (Mild 1-3)/fever Last Admin: 06/19/20 07:44 Dose: 650 mg Documented by: Albuterol/Ipratropium (Albuterol/Ipratropium 3.0-0.5 Mg/3 Ml Neb Soln) 3 ml NEB Q4H PRN PRN Reason: Cough Amlodipine Besylate (Amlodipine 5 Mg Tab) 2.5 mg PO DAILY [facility] Last Admin: 06/20/20 10:54 Dose: Not Given Documented by: Budesonide (Budesonide 0.5 Mg/2 Ml Neb Susp) 0.5 mg NEB BIDRT [facility] Last Admin: 06/20/20 07:07 Dose: 0.5 mg Documented by: Diphenhydramine HCl (Diphenhydramine 50 Mg/Ml Sdv) 25 mg IVPUSH Q4H PRN PRN Reason: Headache Enoxaparin Sodium (Enoxaparin 40 Mg/0.4 Ml Syringe) 40 mg SUBCUT DAILY [facility] Last Admin: 06/20/20 08:20 Dose: 40 mg Documented by: Folic Acid (Folic Acid 1 Mg Tab) 1 mg PO DAILY [facility] Last Admin: 06/20/20 08:19 Dose: 1 mg Documented by: Gabapentin (Gabapentin 300 Mg Cap) 600 mg PO BEDTIME [facility] Last Admin: 06/19/20 22:09 Dose: Not Given Documented by: Gabapentin (Gabapentin 300 Mg Cap) 300 mg PO BID@0800,1400 [facility] Last Admin: 06/20/20 08:19 Dose: 300 mg Documented by: Promethazine HCl 6.25 mg/ (Sodium Chloride) 50.25 mls @ 200 mls/hr IV Q6H PRN PRN Reason: Nausea/Vomiting Last Admin: 06/19/20 22:36 Dose: 200 mls/hr Documented by: Ibuprofen (Ibuprofen 600 Mg Tab) 600 mg PO Q6H PRN PRN Reason: Pain/Fever Last Admin: 06/19/20 05:40 Dose: 600 mg Documented by: Lisinopril (Lisinopril 20 Mg Tab) 20 mg PO DAILY [facility] Last Admin: 06/20/20 10:54 Dose: Not Given Documented by: Morphine Sulfate (Morphine 2 Mg/Ml Syringe) 2 mg IVPUSH Q1H PRN PRN Reason: Pain (severe 7-10) Last Admin: 06/20/20 04:01 Dose: 2 mg Documented by: Ondansetron HCl (Ondansetron 4 Mg Tab.Dis) 4 mg PO Q6H PRN PRN Reason: Nausea able to take PO Last Admin: 06/19/20 13:46 Dose: 4 mg Documented by: Oxycodone/Acetaminophen (Acetaminophen/Oxycodone 325-5 Mg Tab) 1 tab PO Q4H PRN PRN Reason: Pain (moderate 4-6) Last Admin: 06/18/20 16:20 Dose: 1 tab Documented by: Pantoprazole Sodium (Pantoprazole 40 Mg Tab.Cr) 40 mg PO ACBREAKFAST [facility] Last Admin: 06/20/20 08:19 Dose: 40 mg Documented by: Pentoxifylline (Pentoxifylline 400 Mg Tab.Er) 400 mg PO TIDMEALS [facility] Last Admin: 06/20/20 08:19 Dose: 400 mg Documented by: Rosuvastatin Calcium (Rosuvastatin 10 Mg Tab) 10 mg PO DAILY [facility] Last Admin: 06/20/20 08:19 Dose: 10 mg Documented by: Discontinued Medications Carvedilol (Carvedilol 3.125 Mg Tab) 6.25 mg PO ONETIME ONE Stop: 06/17/20 21:34 Last Admin: 06/18/20 00:02 Dose: 6.25 mg Documented by: Carvedilol (Carvedilol 3.125 Mg Tab) 6.25 mg PO BIDMEALS [facility] Last Admin: 06/20/20 10:55 Dose: Not Given Documented by: Dexamethasone (Dexamethasone 4 Mg/Ml Sdv) 10 mg IVPUSH ONETIME ONE Stop: 06/17/20 18:12 Last Admin: 06/17/20 18:40 Dose: 10 mg Documented by: Diphenhydramine HCl (Diphenhydramine 50 Mg/Ml Sdv) 25 mg IVPUSH ONETIME ONE Stop: 06/17/20 18:12 Last Admin: 06/17/20 18:36 Dose: 25 mg Documented by: Magnesium Sulfate (Magnesium Sulfate In Water 2 Gm/50 Ml) 2 gm in 50 mls @ 25 mls/hr IV ONETIME ONE Stop: 06/17/20 20:10 Last Admin: 06/17/20 18:43 Dose: 25 mls/hr Documented by: Sodium Chloride (Normal Saline) 1,000 mls @ 999 mls/hr IV .BOLUS ONE Stop: 06/17/20 19:11 Last Admin: 06/17/20 18:48 Dose: 999 mls/hr Documented by: Dextrose/Water (Dextrose 5% In Water) 1,000 mls @ 125 mls/hr IV ASDIRECTED [facility] Last Admin: 06/17/20 19:23 Dose: 125 mls/hr Documented by: Dextrose/Water (Dextrose 5% In Water) 1,000 mls @ 100 mls/hr IV ASDIRECTED [facility] Last Admin: 06/18/20 03:38 Dose: 100 mls/hr Documented by: Morphine Sulfate (Morphine 2 Mg/Ml Syringe) 2 mg IVPUSH Q2H PRN PRN Reason: Pain (severe 7-10) Last Admin: 06/19/20 09:05 Dose: 2 mg Documented by: Morphine Sulfate (Morphine 2 Mg/Ml Syringe) 2 mg IVPUSH ONETIME ONE Stop: 06/19/20 10:37 Last Admin: 06/19/20 11:05 Dose: 2 mg Documented by: Ondansetron HCl (Ondansetron 4 Mg Tab.Dis) 4 mg PO ONETIME ONE Stop: 06/19/20 17:37 Last Admin: 06/19/20 17:39 Dose: 4 mg Documented by: Prochlorperazine Edisylate (Prochlorperazine 10 Mg/2 Ml Sdv) 10 mg IVPUSH ONETIME ONE Stop: 06/17/20 18:12 Last Admin: 06/17/20 18:38 Dose: 10 mg Documented by:
== END 2020-06-20 11:45 | disposition home or self-care (01) | DRG 641 ==
LOC: JP.ED 16:19 → JP.MS 21:06
PROVIDERS: ADMIT Family Medicine; ATTEND Internal Medicine
DX: E87.0 Hyperosmolality and hypernatremia (principal); R41.82 Altered mental status, unspecified; E86.0 Dehydration; G43.109 Migraine with aura, not intractable, without status migrainosus; I73.9 Peripheral vascular disease, unspecified; R00.1 Bradycardia, unspecified; I95.9 Hypotension, unspecified; M54.9 Dorsalgia, unspecified; G62.9 Polyneuropathy, unspecified; I10 Essential (primary) hypertension; E61.1 Iron deficiency; E78.5 Hyperlipidemia, unspecified; Z88.6 Allergy status to analgesic agent; J45.909 Unspecified asthma, uncomplicated; E56.9 Vitamin deficiency, unspecified; Z79.51 Long term (current) use of inhaled steroids; H54.7 Unspecified visual loss; G89.29 Other chronic pain; F41.9 Anxiety disorder, unspecified; F32.9 Major depressive disorder, single episode, unspecified; G45.4 Transient global amnesia; D50.9 Iron deficiency anemia, unspecified; Z90.89 Acquired absence of other organs; Z79.82 Long term (current) use of aspirin; Z79.899 Other long term (current) drug therapy; Z88.2 Allergy status to sulfonamides; Z88.5 Allergy status to narcotic agent; Z88.8 Allergy status to other drugs, medicaments and biological substances; Z87.442 Personal history of urinary calculi; Z98.49 Cataract extraction status, unspecified eye; Z90.49 Acquired absence of other specified parts of digestive tract; Z90.710 Acquired absence of both cervix and uterus; E66.01 Morbid (severe) obesity due to excess calories; M54.41 Lumbago with sciatica, right side; E21.3 Hyperparathyroidism, unspecified; E55.9 Vitamin D deficiency, unspecified
CPT/HCPCS: 36415; 70450; 80048; 80053; 81001; 81003; 83605; 84484; 85027; 94640; 94762; 96365; 96366; 96375; 99285-25; A9270-GY; J0780; J1100; J1200; J1650; J2270; J2550; J3475; J7030; J7060

== ENCOUNTER 2020-06-23 10:24 | Emergency (ER) | payer MEDICARE, BC ==
[2020-06-23] MEDS ORDERED: fentaNYL 100 MCG/2 ML SDV IM ONE (11:36)
--- NOTE | 2020-06-23 11:41 | EDM.PDOC ---
ED HPI GENERAL MEDICAL PROBLEM - General Chief Complaint: Headache Stated Complaint: DIZZY AND HEADACHE Time Seen by Provider: 06/23/20 11:30 Source of Information: Reports: Patient, Family History Limitations: Reports: No Limitations - History of Present Illness INITIAL COMMENTS - FREE TEXT/NARRATIVE: 75-year-old female with a persistent headache, dizziness, and generalized ma laise for the past week. She was hospitalized for 3 days and discharge somewhat improved but still nauseated, still dizzy with a headache. She was allowed to go back to work on a limited basis, she worked 3 days ago and managed to get through the day, and yesterday off, when she returned to work this morning they sent her into the emergency room because she was unsteady, had a worsening frontal headache especially when bending over, and just did not look like herself. She has no fevers or chills. She keeps holding the front of her head as a source of headache. Her speech is clear, she has no asymmetrical complaint such as weakness of one arm or one leg. Onset: Gradual Duration: Day(s): (Symptoms have been ongoing for over a week waxing and waning) Location: Reports: Head (Frontal headache) Associated Symptoms: Reports: Other (Dizziness, weakness, generalized malaise) Headache Pain Score (Numeric/FACES): 8 - Related Data Allergies Allergy/AdvReac Type Severity Reaction Status Date / Time Sulfa (Sulfonamide Allergy Fever Verified 06/23/20 11:03 Antibiotics) amitriptyline AdvReac Nausea and Verified 06/23/20 11:03 Vomiting aspartame AdvReac Headache Verified 06/23/20 11:23 [From Nutrasweet Aspartame] ketorolac tromethamine AdvReac Nausea and Verified 06/23/20 11:03 [From Toradol] Vomiting tramadol AdvReac Nausea and Verified 06/23/20 11:03 Vomiting Home Meds: Home Meds Albuterol/Ipratropium [Combivent] 1 puff INH Q4H PRN 08/03/13 [History] Budesonide [Pulmicort] 1 vial NEB Q12H PRN 08/03/13 [History] Calcium Carbonate/Vitamin D3 [Calcium 600-Vit D3 200 Tablet] 1 each PO BID 08/03/13 [History] Cholecalciferol (Vitamin D3) [Vitamin D3] 50,000 unit PO MOWEFR 08/03/13 [History] Cyanocobalamin (Vitamin B-12) [Vitamin B-12] 1,000 mcg PO BID 08/03/13 [History] Folic Acid 1 mg PO DAILY 08/03/13 [History] Mometasone Furoate [Nasonex [place]] 1 spray EZIO DAILY PRN 08/03/13 [History] Montelukast [Singulair] 10 mg PO BEDTIME 08/03/13 [History] Multivitamin W/Iron, Minerals [Multivitamins with Iron] 1 each PO DAILY 08/03/13 [History] Aspirin [Low Dose Aspirin EC] 81 mg PO DAILY 04/27/15 [History] ZOLMitriptan [Zomig] 5 mg PO ASDIRECTED PRN 04/27/15 [History] Gabapentin [Neurontin] 300 mg PO BID 01/23/17 [History] Gabapentin [Neurontin] 600 mg PO BEDTIME 03/31/19 [History] Hydrocortisone Acetate [Anusol-Hc] 1 supp RECTAL BID PRN 03/31/19 [History] Albuterol/Ipratropium [DuoNeb 3.0-0.5 MG/3 ML] 3 ml INH Q4H PRN 09/09/19 [History] clonazePAM [Clonazepam] 0.125 mg SL BEDTIME PRN 09/11/19 [History] Acetaminophen [Tylenol] 650 mg PO Q6HR tablet 09/15/19 [Rx] lisinopriL [Lisinopril] 20 mg PO DAILY 04/20/20 [History] amLODIPine [Norvasc] 2.5 mg PO DAILY 05/04/20 [History] Pentoxifylline 400 mg PO TID 06/15/20 [History] Rosuvastatin [Crestor] 10 mg PO DAILY 06/15/20 [History] Past Medical History HEENT History: Reports: Cataract, Impaired Vision, Other (See Below) Other HEENT History: wears glasses Cardiovascular History: Reports: Hypertension, Other (See Below) Other Cardiovascular History: stress test = normal Respiratory History: Reports: Asthma Gastrointestinal History: Reports: Cholelithiasis, Hemorrhoids, Hepatitis Genitourinary History: Reports: Renal Calculus [employer]PERATOR History: Reports: Musculoskeletal History: Reports: Back Pain, Chronic, Fracture Neurological History: Reports: Migraines Psychiatric History: Reports: Anxiety, Depression, Other (See Below) 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 Endocrine/Metabolic History: Reports: Other (See Below) Other Endocrine/Metabolic History: low blood sugar Hematologic History: Reports: Anemia, Iron Deficiency Dermatologic History: Reports: Eczema - Infectious Disease History Infectious Disease History: Reports: Chicken Pox, Measles, Mumps, Shingles Other Infectious Disease History: hepatitis unsure which one - Past Surgical History Head Surgeries/Procedures: Reports: None HEENT Surgical History: Reports: Adenoidectomy, Cataract Surgery, Tonsillectomy Cardiovascular Surgical History: Reports: None Respiratory Surgical History: Reports: None GI Surgical History: Reports: Bariatric Procedure, Cholecystectomy, Colonoscopy, EGD Female Surgical History: Reports: Hysterectomy Endocrine Surgical History: Reports: Parathyroidectomy Neurological Surgical History: Reports: None Musculoskeletal Surgical History: Reports: None Social & Family History - Family History Cardiac: Reports: Hypertension Oncologic: Reports: Brain, Liver, Lung - Tobacco Use Tobacco Use Status *Q: Never Tobacco User - Caffeine Use Caffeine Use: Reports: None - Recreational Drug Use Recreational Drug Use: No ED ROS GENERAL - Review of Systems Review Of Systems: See Below Constitutional: Reports: Malaise. Denies: Fever, Chills HEENT: Denies: Vision Change Respiratory: Denies: Shortness of Breath Cardiovascular: Denies: Chest Pain GI/Abdominal: Reports: Nausea, Other (Dry heaves) Skin: Reports: No Symptoms Neurological: Reports: Dizziness, Headache, Weakness, Other (Feels unsteady) Psychiatric: Reports: No Symptoms - Physical Exam Exam: See Below Exam Limited By: No Limitations General Appearance: Alert, Mild Distress, Other (Photophobic, looks miserable) Eye Exam: Bilateral Eye: EOMI, PERRL (Does not tolerate light in her eyes very well) Head Exam: Atraumatic, Other (Patient does react with tenderness to palpation of any area around her scalp or neck) Neck: Supple, Other (Paracervical muscles are tender to palpation) Respiratory/Chest: No Respiratory Distress, Lungs Clear Cardiovascular: Regular Rate, Rhythm Neuro Exam (Abbreviated): Alert, Oriented, No Motor/Sensory Deficits (No asymmetry to the strength of the arms or legs, no sensation deficits) Extremities: Normal Inspection Psychiatric: Depressed Mood, Flat Affect Skin Exam: Warm, Dry Course - Vital Signs Last Recorded V/S: Last Vital Signs Temp 98.9 F 06/23/20 10:59 Pulse 57 L 06/23/20 14:17 Resp 14 06/23/20 10:59 BP 127/64 06/23/20 14:17 Pulse Ox 94 L 06/23/20 14:17 - Orders/Labs/Meds Orders: Active Orders 24 hr Category Date Time Status CULTURE CSF + SMEAR [RM] Stat Lab 06/23/20 13:25 Results Labs: Laboratory Tests 06/23/20 06/23/20 Range/Units 13:14 13:20 CSF Tube Number 2 CSF Volume 0.5 mls CSF Appearance Clear (CLEAR) CSF Color Colorless (COLORLESS) CSF WBC 2 (0-5) /ul CSF RBC 46 H (0-0) /ul CSF Mononuclear Cells 100 (54-100) % CSF Polymorphonuclear 0 (0-7) % CSF Diff Comment See note CSF Glucose 54 (40-70) mg/dL CSF Total Protein 48.0 H (15-45) mg/dL Meds: Medications Discontinued Medications Generic Name Dose Route Start Last Admin Trade Name Ariana PRN Reason Stop Dose Admin Bupivacaine HCl Confirm 06/23/20 13:24 Bupivacaine 0.5% 30 Ml Sdv Administered 06/23/20 13:25 Dose 30 ml .ROUTE .STK-MED ONE Fentanyl 50 mcg 06/23/20 11:36 06/23/20 12:02 Fentanyl 100 Mcg/2 Ml Sdv IM 06/23/20 11:37 50 mcg ONETIME ONE Administration Sodium Chloride 1,000 mls @ 50 mls/hr 06/23/20 13:15 06/23/20 13:16 Normal Saline IV 50 mls/hr ASDIRECTED ANISHA Administration Ketorolac Tromethamine 15 mg 06/23/20 13:51 06/23/20 13:59 Ketorolac 30 Mg/Ml Sdv IVPUSH 06/23/20 13:52 15 mg ONETIME ONE Administration Methylprednisolone Sodium Succinate 125 mg 06/23/20 13:51 06/23/20 14:00 Methylprednisolone Sodium Succinate 125 Mg/2 Ml Sdv IVPUSH 06/23/20 13:52 125 mg ONETIME ONE Administration - Re-Assessments/Exams Free Text/Narrative Re-Assessment/Exam: 06/23/20 14:29 Records were reviewed, also had a brief discussion with the hospitalist service regarding recent hospitalization. Anesthesia was consulted for a lumbar puncture for opening pressure and fluid evaluation. Opening pressure was 21, fluid was relatively normal other than a minimally elevated protein. She did seem to respond to some local trigger injections into her upper neck. Initially 50 mcg of IM fentanyl did nothing for her. After the fluid evaluation came back looking reassuring, she was given 125 mg of Solu-Medrol, 15 mg of IV Toradol and a note was written for work to be off for the next 5 days. She is going to rest, continue her medications and increase activity as tolerated. 06/23/20 16:06 Patient was feeling much better on discharge, pain was 2 out of 10. Departure - Departure Time of Disposition: 14:59 Disposition: Home, Self-Care 01 Clinical Impression: Tension-type headache - Discharge Information Instructions: General Headache Without Cause, [id number] Referrals: Gianni Bobo MD [Primary Care Provider] - Forms: ED Department Discharge Care Plan Goals: Continue your current medications, and slowly increase diet and activity as tolerated. Consider rechecking in 3 to 4 days if not improving satisfactorily, or return anytime if worsening or concerns. Sepsis Event Note (ED) - Evaluation Sepsis Screening Result: No Definite Risk - Focused Exam Vital Signs: Vital Signs Temp Pulse Resp BP Pulse Ox 06/23/20 14:17 57 L 127/64 94 L 06/23/20 13:47 56 L 142/65 H 96 06/23/20 13:17 60 147/67 H 98 06/23/20 12:47 136/73 06/23/20 12:16 64 134/62 100 06/23/20 11:47 60 144/68 H 100 06/23/20 11:17 68 167/77 H 98 06/23/20 10:59 98.9 F 58 L 14 158/73 H 99 06/23/20 10:51 98.9 F 58 L 14 158/73 H 99 - My Orders Last 24 Hours: My Active Orders 06/23/20 13:25 CULTURE CSF + SMEAR [RM] Stat - Assessment/Plan Last 24 Hours: My Active Orders 06/23/20 13:25 CULTURE CSF + SMEAR [RM] Stat
[2020-06-23] MEDS ORDERED: Sodium Chloride 0.9% 1,000 ML IV SCH (13:15)
[2020-06-23] MEDS ORDERED: Bupivacaine 0.5% 30 ML SDV ONE (13:24)
[2020-06-23] MEDS ORDERED: methylPREDNISolone Sodium Succinate 125 MG/2 ML SDV IVPUSH ONE (13:51)
[2020-06-23] MEDS ORDERED: Ketorolac 30 MG/ML SDV IVPUSH ONE (13:51)
[2020-06-23 14:41] VITALS: BP 127/64; PULSE 57
--- NOTE | 2020-06-23 14:54 | ANES ---
DATE OF SERVICE: 06/23/2020 PROCEDURE: Lumbar puncture and trigger point injection. INDICATIONS: I was called early this afternoon by Dr. Hartley in the emergency department for a lady who had significant migraine since this past Saturday. She has been in and out of the ER couple of times since then and has not had any really significant relief related to her migraine. He was wanting me to do a diagnostic lumbar puncture on her just as a part of her workup. This patient is very familiar to us at [facility]. Princess is a very regular patient who comes in for trigger point injections frequently, and we are well aware of her physical status and allergies. I was at the bedside at approximately 12:50. Risks and benefits related to the lumbar puncture were discussed with the patient and patient's daughter. They both verbalized the understanding of the risks and benefits related to the lumbar puncture and wished to proceed with that today. I also talked with Princess about doing occipital trigger points and down her neck to see if that would help her headache. She really wanted us to do that also to see if that would help with her migraines today, so we will do both, lumbar puncture first and then we will do occipital trigger points after that. I did discuss with Dr. Hartley to do occipital trigger points with her and he agreed with doing that today to see if that would help also. TECHNIQUE: The patient was then sat in the right lateral decubitus position. Betadine prep x3 to the lumbar region was done. Sterile drape was placed. 1% lidocaine skin wheal and deep was done. A 25-gauge P[place] spinal needle was inserted at approximately the L3-4 position. [place] very good throughout. Did have positive CSF quickly. CSF was noted initially to have just a tiny little bit of blood which is expected when doing a lumbar puncture but cleared very quickly. Initial pressure was noted to be 21, and like I said, cerebrospinal fluid looked clear. Did not have any cloudiness to it or any redness in it. Four vials were obtained of CSF. Needle was then taken out. Sterile drape was taken down. Betadine was cleaned off her back, and a Band-Aid was applied to the puncture site for hemostasis. The patient tolerated this without difficulty. Then, sat the patient up at the edge of the bed to do trigger point injections. Alcohol was used to clean both right and left occipital down bilateral neck and then across her trapezius muscle. I was able to easily identify approximately 12 to 13 trigger points. I did 6 across bilateral occipitals, a couple down the neck and then a couple down her trapezius muscle. 1 to 1.5 mL of 0.5% Sensorcaine were injected into those areas. More than 3 muscle groups were injected today. The patient tolerated that procedure without difficulty also. Please refer to the nurse's notes for vital signs. We will be available as needed for the patient and Dr. Hartley. Fabiano Ohara CRNA /[id number]
== END 2020-06-23 14:59 | disposition home or self-care (01) ==
LOC: JP.ED 10:24
DX: G44.209 Tension-type headache, unspecified, not intractable (principal); I10 Essential (primary) hypertension; J45.909 Unspecified asthma, uncomplicated; Z88.8 Allergy status to other drugs, medicaments and biological substances; Z88.6 Allergy status to analgesic agent; Z88.5 Allergy status to narcotic agent; Z79.82 Long term (current) use of aspirin; Z79.899 Other long term (current) drug therapy; Z88.2 Allergy status to sulfonamides
CPT/HCPCS: 82945; 84157; 87070; 87205; 89050; 96372; 96374; 96375; 99284; J1885; J2930; J3010; J3490; J7030

== ENCOUNTER 2020-10-24 06:37 | Day surgery (SDC) | payer MEDICARE, BC ==
[2020-10-24] MEDS ORDERED: Lactated Ringers 1,000 ML IV ONE (07:00)
[2020-10-24] MEDS ORDERED: Propofol 200 MG/20 ML SDV ONE (07:03)
[2020-10-24] MEDS ORDERED: fentaNYL 100 MCG/2 ML SDV ONE (07:03)
[2020-10-24] MEDS ORDERED: Glycopyrrolate 0.2 MG/ML 2 ML SDV IVPUSH ONE (07:15)
[2020-10-24] MEDS ORDERED: Cyanocobalamin (Vitamin B12) 1,000 MCG/ML SDV IM ONE (07:15)
[2020-10-24] MEDS ORDERED: MVI, Adult with Vitamin K 10 ML, Thiamine 200 MG, Zinc/Copper/Manganese/Selenium 1 ML i... IV ONE ×4 (08:00)
[2020-10-24] MEDS ORDERED: Dexamethasone 4 MG/ML SDV ONE (08:54)
[2020-10-24] MEDS ORDERED: Ondansetron 4 MG/2 ML SDV ONE (08:54)
[2020-10-24 10:43] VITALS: BP 137/75; PULSE 62
--- NOTE | 2020-10-31 15:13 | OR ---
DATE OF PROCEDURE: 10/24/2020 SURGEON: Miguel Horn MD PREOPERATIVE DIAGNOSIS: CT scanning showing thickening of the distal esophagus. POSTOPERATIVE DIAGNOSIS: Normal upper gastrointestinal endoscopy. OPERATIVE PROCEDURE: Upper gastrointestinal endoscopy. ANESTHESIA: IV sedation. INDICATION FOR PROCEDURE: This is a 75-year-old status post Wendi-en-Y gastric bypass, presenting at this point with some lower abdominal pain. A CT scan was obtained which showed no evident problems within the abdomen or pelvis per se, but did show some thickening of the distal esophagus. To investigate that issue, the patient is to undergo an upper GI endoscopy with biopsies and/or dilation as indicated. Potential risks including bleeding and perforation were discussed, and the patient wishes to proceed. DETAILS OF PROCEDURE: The patient was taken to the operating room and placed in a left lateral decubitus position. IV sedation was administered after which the upper GI endoscope was passed orally through the length of the esophagus, through the gastrojejunostomy and the Wendi limb roughly 20 cm. Overall, there was minimal abnormality noted. The patient had a small hiatal hernia which may have allowed some thickening of the distal esophageal mucosa radiologically, but otherwise there was no gross inflammation present within the esophagus, the EG junction, gastric pouch, the gastrojejunostomy, or visualized portions of the Wendi limb. The scope was then withdrawn, the above findings reconfirmed, and the procedure concluded. The patient was taken to the recovery room in satisfactory condition. Miguel Horn MD /[id number]
== END 2020-10-24 11:00 | disposition home or self-care (01) ==
LOC: JP.SDS 06:37
PROVIDERS: ATTEND Surgery
DX: K22.2 Esophageal obstruction (principal); K44.9 Diaphragmatic hernia without obstruction or gangrene; Z88.2 Allergy status to sulfonamides; Z88.8 Allergy status to other drugs, medicaments and biological substances
CPT/HCPCS: 43235; J1100; J2405; J2704; J3010; J3411; J3420; J3490; J7120

== ENCOUNTER 2020-12-08 07:53 | Day surgery (SDC) | payer MEDICARE, BC ==
[~2020-12-08 07:53] MED LIST changes: -Meropenem 500 MG SDV ONE; +Propofol 200 MG/20 ML SDV ONE; +fentaNYL 100 MCG/2 ML SDV ONE
[2020-12-08] MEDS ORDERED: Dextrose 5%-Lactated Ringers 1,000 ML IV SCH (08:30)
[2020-12-08] MEDS ORDERED: Albuterol/Ipratropium 3.0-0.5 MG/3 ML Neb Soln NEB ONE (08:45)
[2020-12-08] MEDS ORDERED: Ondansetron 4 MG/2 ML SDV IVPUSH ONE (10:10)
[2020-12-08 12:53] VITALS: BP 156/74; PULSE 54
--- NOTE | 2020-12-09 12:04 | OR ---
DATE OF PROCEDURE: 12/08/2020 SURGEON: Miguel Horn MD PREOPERATIVE DIAGNOSIS: Lower abdominal pain. POSTOPERATIVE DIAGNOSIS: Lower abdominal pain associated with grossly normal colonoscopy apart from the scattered uncomplicated left colonic diverticulosis. OPERATIVE PROCEDURE: Flexible colonoscopy with random colorectal biopsies, to rule out microscopic colitis. ANESTHESIA: IV sedation. INDICATION FOR PROCEDURE: A 75-year-old presenting with some variable but persistent lower abdominal pain across the entire lower abdomen and varies somewhat in terms of intensity and that generally associated with cramping type sensation. She had a recent CT scan which did not show any colonic pathology or other lower abdominal pathology to account for that. I did see some uncomplicated diverticulosis on the CT scan. Plan is to proceed with a colonoscopy with biopsies and polypectomy as indicated. Potential risks including bleeding and perforation were discussed, and the patient wishes to proceed. DETAILS OF PROCEDURE: The patient was taken to the operating room and placed in a left lateral decubitus position. IV sedation was administered, after which the initial digital rectal exam was performed and was unremarkable. Colonoscope was then passed up to the level of the rectum and retroflexion revealed uncomplicated hemorrhoidal columns. Scope was then eventually passed to the level of the cecum. The prep was quite good, only small amount of liquid stool was present to that level and there was some uncomplicated left colonic diverticulosis, but otherwise, no abnormalities noted, specifically no areas of colitis, polyps, or other signs of neoplasia. At this point, the scope was withdrawn, multiple random colorectal biopsies were obtained to rule out microscopic colitis. Minimal bleeding from biopsy sites was seen and the procedure then concluded. The plan will be to proceed with repeat CAT scan of the abdomen and pelvis. She did have one in September, but with persistent symptoms, we will see if there is any interval change that may account for the patient's findings. If this is negative and the biopsies are negative, one would consider perhaps a gastroenterology referral. The patient will be following with Laura Bruce in [facility] in roughly 7 to 10 days. Miguel Horn MD /[id number]
== END 2020-12-08 12:56 | disposition home or self-care (01) ==
LOC: JP.SDS 07:53
PROVIDERS: ATTEND Surgery
DX: K57.30 Diverticulosis of large intestine without perforation or abscess without bleeding (principal); K64.9 Unspecified hemorrhoids; J45.909 Unspecified asthma, uncomplicated; I10 Essential (primary) hypertension; E66.9 Obesity, unspecified; Z68.24 Body mass index [BMI] 24.0-24.9, adult
CPT/HCPCS: 45380; 88305; J2405; J2704; J3010; J7121; J7620-GY

== ENCOUNTER 2022-07-28 09:32 | Emergency (ER) | payer MEDICARE, BC ==
[2022-07-28] MEDS ORDERED: HYDROmorphone 0.5 MG/0.5 ML Syringe IVPUSH ONE (09:54)
[2022-07-28] MEDS ORDERED: Iopamidol 612 MG/ML 100 ML Bottle IV PRN (09:57)
[2022-07-28] MEDS ORDERED: Ondansetron 4 MG/2 ML SDV IVPUSH ONE (10:00)
[2022-07-28] MEDS ORDERED: Sodium Chloride 0.9% 50 ML IV SCH (10:00)
[2022-07-28] MEDS: Sodium Chloride 0.9% 10 ML Syringe FLUSH PRN ×2 (10:01→10:46)
[2022-07-28 10:05] LABS: BASOPHILS ABSOLUTE AUTO 0.03 K/uL (0.00-0.10); BASOPHILS PERCENT AUTO 0.4 % (0.1-1.3); EOSINOPHILS ABSOLUTE AUTO 0.12 K/uL (0.00-0.40); EOSINOPHILS PERCENT AUTO 1.7 % (0.0-5.4); HEMATOCRIT 41.3 % (34.3-46.0); HEMOGLOBIN 13.4 g/dL (11.2-15.5); IMMATURE GRAN ABSOLUTE AUTO 0.03 K/uL (0.00-0.23); IMMATURE GRAN PERCENT AUTO 0.4 % (0.0-0.7); LYMPHOCYTES ABSOLUTE AUTO 2.41 K/uL (0.8-3.3); LYMPHOCYTES PERCENT AUTO 34.8 % (11.4-47.7); MEAN CORPUSCULAR HEMOGLOBIN 31.5 pg (31.6-35.5); MEAN CORPUSCULAR HGB CONC 32.4 g/dL (31.6-35.5); MEAN CORPUSCULAR VOLUME 97.2 fL (81.4-99.0); MONOCYTES PERCENT AUTO 8.7 % (3.3-12.6); NEUTROPHILS ABSOLUTE AUTO 3.74 K/uL (1.0-7.6); PLATELET COUNT,PLT 214 K/uL (130-375); RED BLOOD CELL COUNT 4.25 M/uL (3.77-5.24); WHITE BLOOD CELL COUNT,WBC 6.9 K/uL (3.2-11.0)
[2022-07-28 10:26] LABS: A/G RATIO 1.2 (1.2-2.2); ALANINE AMINOTRANSFERASE,ALT 41 U/L (12-78); ALBUMIN 3.4 g/dL (3.4-5.0); ALKALINE PHOSPHATASE 65 U/L (46-116); ANION GAP 5.9 mmol/L (5.0-14.0); ASPARTATE AMNIOTRANSFERASE,AST 34 U/L (15-37); BILIRUBIN TOTAL 0.5 mg/dL (0.2-1.0); BLOOD UREA NITROGEN,BUN 21 mg/dL (7-18); CALCIUM 8.1 mg/dL (8.5-10.1); CARBON DIOXIDE,CO2 31 mmol/L (21-32); CHLORIDE,CL 106 mmol/L (100-108); CREATININE 0.8 mg/dL (0.6-1.0); EST CRCL DRUG DOSING (CG) 47.32 mL/min; ESTIMATED GFR 76 mL/min (>60); GLUCOSE RANDOM 95 mg/dL (74-106); LIPASE 95 U/L (73-393); POTASSIUM,K 3.6 mmol/L (3.6-5.2); PROTEIN TOTAL,TP 6.3 g/dL (6.4-8.2); SODIUM,NA 143 mmol/L (140-148)
[2022-07-28 10:27] LABS: C-REACTIVE PROTEIN < 0.05 mg/dL (0.0-0.3)
[2022-07-28 10:29] LABS: LACTIC ACID 1.3 mmol/L (0.4-2.0)
[2022-07-28] MEDS ORDERED: HYDROmorphone 1 MG/ML Syringe IVPUSH ONE (10:42)
[2022-07-28] MEDS ORDERED: Metoclopramide 10 MG/2 ML SDV IVPUSH ONE (11:12)
[2022-07-28] MEDS ORDERED: Haloperidol Lactate 5 MG/ML SDV IVPUSH ONE (12:23)
[2022-07-28 13:14] LABS: APPEARANCE,URINE CLEAR (CLEAR); BILIRUBIN,URINE NEGATIVE (NEGATIVE); COLOR,URINE YELLOW (YELLOW); GLUCOSE,URINE NEGATIVE (NEGATIVE); KETONES,URINE NEGATIVE (NEGATIVE); LEUKOCYTE ESTERASE,URINE NEGATIVE (NEGATIVE); NITRITE,URINE NEGATIVE (NEGATIVE); OCCULT BLOOD,URINE LARGE (NEGATIVE); PH,URINE 5.5 (5.0-8.0); PROTEIN,URINE NEGATIVE (NEGATIVE); UROBILINOGEN,URINE 0.2 EU/dL (0.2-1.0)
[2022-07-28 13:20] LABS: AMORPHOUS SEDIMENT,URINE NOT SEEN; BACTERIA,URINE NOT SEEN; EPITHELIAL CELLS,URINE FEW; MUCUS,URINE NOT SEEN; RBC,URINE 20-30 (0-5); WBC,URINE 0-5 (0-5)
[2022-07-28 14:01] VITALS: PULSE 54
[2022-07-28 14:36] VITALS: BP 142/67
== END 2022-07-28 14:52 | disposition home or self-care (01) ==
LOC: JP.ED 09:32
DX: R10.32 Left lower quadrant pain (principal); R11.0 Nausea; I10 Essential (primary) hypertension; J45.909 Unspecified asthma, uncomplicated; Z88.2 Allergy status to sulfonamides; Z88.8 Allergy status to other drugs, medicaments and biological substances; Z88.5 Allergy status to narcotic agent; Z79.82 Long term (current) use of aspirin; Z79.899 Other long term (current) drug therapy; Z20.822 Contact with and (suspected) exposure to COVID-19
CPT/HCPCS: 36415; 74177; 80053; 81001; 83605; 83690; 85025; 86140; 96374; 96375; 96376; 99284; J1170; J1630; J2405; J2765; J3490; Q9967; U0002

== ENCOUNTER 2024-03-01 09:09 | Emergency (ER) | payer MEDICARE, BC ==
[2024-03-01 09:23] VITALS: BP 157/91; PULSE 78
[2024-03-01] MEDS: Ibuprofen 600 MG Tab PO ONE (09:47)
== END 2024-03-01 11:10 | disposition home or self-care (01) ==
LOC: JP.ED 09:09
DX: S52.572A Other intraarticular fracture of lower end of left radius, initial encounter for closed fracture (principal); S52.612A Displaced fracture of left ulna styloid process, initial encounter for closed fracture; I10 Essential (primary) hypertension; Z90.49 Acquired absence of other specified parts of digestive tract; Z90.710 Acquired absence of both cervix and uterus; Z79.899 Other long term (current) drug therapy; Z79.82 Long term (current) use of aspirin; Z88.5 Allergy status to narcotic agent; Z88.8 Allergy status to other drugs, medicaments and biological substances; Z88.2 Allergy status to sulfonamides; W19.XXXA Unspecified fall, initial encounter; Y93.41 Activity, dancing
CPT/HCPCS: 29125; 73090; 73110; 99283; A9270

== ENCOUNTER 2024-03-16 08:05 | Day surgery (SDC) | payer MEDICARE, BC ==
[2024-03-16] MEDS ORDERED: Propofol 200 MG/20 ML SDV ONE (08:09)
[2024-03-16] MEDS ORDERED: fentaNYL 250 MCG/5 ML SDV ONE (08:09)
[2024-03-16] MEDS ORDERED: Dexamethasone 4 MG/ML SDV ONE (08:09)
[2024-03-16] MEDS ORDERED: Ondansetron 4 MG/2 ML SDV ONE (08:09)
[2024-03-16] MEDS: Lactated Ringers 1,000 ML IV SCH (08:33)
[2024-03-16] MEDS: Scopalamine 1mg/3day Transdermal Patch TOP SCH (08:45)
[2024-03-16 08:47] LABS: HEMATOCRIT 39.9 % (34.3-46.0); HEMOGLOBIN 13.2 g/dL (11.2-15.5); MEAN CORPUSCULAR HEMOGLOBIN 31.4 pg (31.6-35.5); MEAN CORPUSCULAR HGB CONC 33.1 g/dL (31.6-35.5); MEAN CORPUSCULAR VOLUME 94.8 fL (81.4-99.0); RED BLOOD CELL COUNT 4.21 M/uL (3.77-5.24); WHITE BLOOD CELL COUNT,WBC 6.7 K/uL (3.2-11.0)
[2024-03-16] MEDS: Nozin Nasal Sanitizer NASBOTH ONE (08:55)
[2024-03-16] MEDS: ceFAZolin 1 GM in Premix Bag 1 BAG IV ONE (09:55)
[2024-03-16] MEDS ORDERED: droPERidol 5 MG/2 ML SDV ONE (10:11)
[2024-03-16] MEDS: Bupivacaine 0.5% 30 ML SDV ONE (10:36)
[2024-03-16] MEDS ORDERED: fentaNYL 100 MCG/2 ML SDV ONE (10:46)
[2024-03-16 12:47] VITALS: BP 149/77; PULSE 62
== END 2024-03-16 12:30 | disposition home or self-care (01) ==
LOC: JP.SDS 08:05
PROVIDERS: ATTEND Specialist
DX: S52.502A Unspecified fracture of the lower end of left radius, initial encounter for closed fracture (principal); S52.615A Nondisplaced fracture of left ulna styloid process, initial encounter for closed fracture; J45.20 Mild intermittent asthma, uncomplicated; I10 Essential (primary) hypertension; K21.9 Gastro-esophageal reflux disease without esophagitis; E78.5 Hyperlipidemia, unspecified; E66.01 Morbid (severe) obesity due to excess calories; Z79.899 Other long term (current) drug therapy; Z88.2 Allergy status to sulfonamides; Z88.8 Allergy status to other drugs, medicaments and biological substances; X58.XXXA Exposure to other specified factors, initial encounter
CPT/HCPCS: 25608; 36415; 76000; 85027; 93005; A9270; C1713; J0665; J0689; J1100; J1790; J2405; J2704; J3010; J7120

== ENCOUNTER 2024-06-19 11:21 | Emergency (ER) | payer MEDICARE, BC ==
[2024-06-19 12:04] LABS: BASOPHILS ABSOLUTE AUTO 0.04 K/uL (0.00-0.10); BASOPHILS PERCENT AUTO 0.7 % (0.1-1.3); EOSINOPHILS ABSOLUTE AUTO 0.12 K/uL (0.00-0.40); HEMATOCRIT 39.8 % (34.3-46.0); HEMOGLOBIN 13.5 g/dL (11.2-15.5); IMMATURE GRAN PERCENT AUTO 0.3 % (0.0-0.7); LYMPHOCYTES ABSOLUTE AUTO 1.47 K/uL (0.8-3.3); MEAN CORPUSCULAR HEMOGLOBIN 31.8 pg (31.6-35.5); MEAN CORPUSCULAR HGB CONC 33.9 g/dL (31.6-35.5); MEAN CORPUSCULAR VOLUME 93.6 fL (81.4-99.0); MONOCYTES PERCENT AUTO 8.5 % (3.3-12.6); NEUTROPHILS ABSOLUTE AUTO 3.74 K/uL (1.0-7.6); NEUTROPHILS PERCENT AUTO 63.5 % (40.0-78.1); PLATELET COUNT,PLT 241 K/uL (130-375); RED BLOOD CELL COUNT 4.25 M/uL (3.77-5.24); WHITE BLOOD CELL COUNT,WBC 5.9 K/uL (3.2-11.0)
[2024-06-19 12:09] LABS: IMMATURE GRAN ABSOLUTE AUTO 0.02 K/uL (0.00-0.23)
[2024-06-19 12:24] LABS: A/G RATIO 1.2 (1.2-2.2); ALANINE AMINOTRANSFERASE,ALT 495 U/L (12-78); ALBUMIN 3.5 g/dL (3.4-5.0); ALKALINE PHOSPHATASE 188 U/L (46-116); ANION GAP 11.1 mmol/L (5.0-14.0); ASPARTATE AMNIOTRANSFERASE,AST 674 U/L (15-37); BILIRUBIN TOTAL 0.9 mg/dL (0.2-1.0); BLOOD UREA NITROGEN,BUN 12 mg/dL (7-18); CALCIUM 9.1 mg/dL (8.5-10.1); CARBON DIOXIDE,CO2 28 mmol/L (21-32); CHLORIDE,CL 104 mmol/L (100-108); CREATININE 0.7 mg/dL (0.6-1.0); EST CRCL DRUG DOSING (CG) 52.39 mL/min; ESTIMATED GFR 88 mL/min (>60); GLUCOSE RANDOM 111 mg/dL (74-106); POTASSIUM,K 3.6 mmol/L (3.6-5.2); PROTEIN TOTAL,TP 6.4 g/dL (6.4-8.2); SODIUM,NA 143 mmol/L (140-148)
[2024-06-19] MEDS: Morphine 4 MG/ML Syringe IVPUSH ONE (13:26)
[2024-06-19] MEDS: oxyCODONE 5 MG Tab PO ONE (14:34)
[2024-06-19 14:48] VITALS: BP 136/71; PULSE 69
== END 2024-06-19 14:48 | disposition home or self-care (01) ==
LOC: JP.ED 11:21
DX: S00.93XA Contusion of unspecified part of head, initial encounter (principal); M54.50 Low back pain, unspecified; M25.512 Pain in left shoulder; M85.89 Other specified disorders of bone density and structure, multiple sites; R74.01 Elevation of levels of liver transaminase levels; I10 Essential (primary) hypertension; E78.00 Pure hypercholesterolemia, unspecified; J45.909 Unspecified asthma, uncomplicated; Z88.8 Allergy status to other drugs, medicaments and biological substances; Z88.2 Allergy status to sulfonamides; Z79.899 Other long term (current) drug therapy; Z79.51 Long term (current) use of inhaled steroids; Z79.82 Long term (current) use of aspirin; Z79.891 Long term (current) use of opiate analgesic; Z86.16 Personal history of COVID-19; Z90.49 Acquired absence of other specified parts of digestive tract; Z90.710 Acquired absence of both cervix and uterus; W01.0XXA Fall on same level from slipping, tripping and stumbling without subsequent striking against object, initial encounter
CPT/HCPCS: 36415; 70450; 72131; 72220; 73030; 76377; 76705; 80053; 80143; 83690; 85025; 96374; 99284; A9270; J2270

== ENCOUNTER 2024-07-08 05:47 | Day surgery (SDC) | payer MEDICARE, BC ==
[2024-07-08 06:24] LABS: HEMATOCRIT 43.5 % (34.3-46.0); HEMOGLOBIN 14.3 g/dL (11.2-15.5); MEAN CORPUSCULAR HEMOGLOBIN 31.8 pg (31.6-35.5); MEAN CORPUSCULAR HGB CONC 32.9 g/dL (31.6-35.5); MEAN CORPUSCULAR VOLUME 96.9 fL (81.4-99.0); RED BLOOD CELL COUNT 4.49 M/uL (3.77-5.24); WHITE BLOOD CELL COUNT,WBC 7.1 K/uL (3.2-11.0)
[2024-07-08 06:42] LABS: ANION GAP 8.6 mmol/L (5.0-14.0); CALCIUM 9.7 mg/dL (8.5-10.1); EST CRCL DRUG DOSING (CG) 38.35 mL/min; POTASSIUM,K 4.1 mmol/L (3.6-5.2)
[2024-07-08] MEDS: Nozin Nasal Sanitizer NASBOTH ONE (06:50)
[2024-07-08] MEDS: Lactated Ringers 1,000 ML IV SCH (07:03)
[2024-07-08] MEDS ORDERED: Midazolam 1 MG/ML 2 ML SDV ONE (07:43)
[2024-07-08] MEDS ORDERED: Propofol 200 MG/20 ML SDV ONE (07:43)
[2024-07-08] MEDS ORDERED: fentaNYL 100 MCG/2 ML SDV ONE (07:43)
[2024-07-08] MEDS ORDERED: Bupivacaine 0.5% 30 ML SDV ONE (07:45)
[2024-07-08] MEDS: ceFAZolin 2 GM in Premix Bag 1 BAG IV ONE (07:47)
[2024-07-08] MEDS ORDERED: Ondansetron 4 MG/2 ML SDV ONE (08:09)
[2024-07-08] MEDS ORDERED: Rocuronium 50 MG/5 ML Vial ONE (08:15)
[2024-07-08] MEDS ORDERED: Dexamethasone 4 MG/ML SDV ONE (08:22)
[2024-07-08] MEDS ORDERED: Scopalamine 1mg/3day Transdermal Patch ONE (08:24)
[2024-07-08] MEDS: Bupivacaine 0.5% 50 ML MDV ONE (08:50)
[2024-07-08] MEDS ORDERED: Lactated Ringers 1,000 ML ONE (09:16)
[2024-07-08] MEDS ORDERED: Sugammadex Sodium 200 MG/2 ML VIAL IV ONE (09:33)
[2024-07-08 12:14] VITALS: BP 136/73; PULSE 72
== END 2024-07-08 12:45 | disposition home or self-care (01) ==
LOC: JP.SDS 05:47
PROVIDERS: ATTEND Specialist
DX: M75.122 Complete rotator cuff tear or rupture of left shoulder, not specified as traumatic (principal); M75.02 Adhesive capsulitis of left shoulder; M85.612 Other cyst of bone, left shoulder; M81.0 Age-related osteoporosis without current pathological fracture
CPT/HCPCS: 01630; 23700; 29826; 29827; 36415; 64415; 80048; 85027; A9270; C1713; J0665; J0690; J1100; J2250; J2405; J2704; J3010; J7120; J3490

== ENCOUNTER 2024-11-12 14:50 | Emergency (ER) | payer MEDICARE, BC ==
[2024-11-12 15:11] VITALS: BP 159/90; PULSE 112
[2024-11-12 16:11] LABS: APPEARANCE,URINE SLIGHTLY CLOUDY (CLEAR); GLUCOSE,URINE NEGATIVE (NEGATIVE); OCCULT BLOOD,URINE SMALL (NEGATIVE)
[2024-11-12 16:20] LABS: BASOPHILS ABSOLUTE AUTO 0.06 K/uL (0.00-0.10); BASOPHILS PERCENT AUTO 0.7 % (0.1-1.3); EOSINOPHILS ABSOLUTE AUTO 0.11 K/uL (0.00-0.40); EOSINOPHILS PERCENT AUTO 1.2 % (0.0-5.4); IMMATURE GRAN ABSOLUTE AUTO 0.03 K/uL (0.00-0.23); IMMATURE GRAN PERCENT AUTO 0.3 % (0.0-0.7); LYMPHOCYTES ABSOLUTE AUTO 1.89 K/uL (0.8-3.3); LYMPHOCYTES PERCENT AUTO 21.2 % (11.4-47.7); MONOCYTES ABSOLUTE AUTO 0.71 K/uL (0.20-0.90); MONOCYTES PERCENT AUTO 8.0 % (3.3-12.6); NEUTROPHILS ABSOLUTE AUTO 6.12 K/uL (1.0-7.6); NEUTROPHILS PERCENT AUTO 68.6 % (40.0-78.1); PLATELET COUNT,PLT 306 K/uL (130-375); RED BLOOD CELL COUNT 5.40 M/uL (3.77-5.24); WHITE BLOOD CELL COUNT,WBC 8.9 K/uL (3.2-11.0)
[2024-11-12] MEDS: Ketorolac 30 MG/ML SDV IM ONE (16:25)
[2024-11-12 16:29] LABS: SQUAMOUS EPITHELIAL CELLS,UR FEW /HPF; UROTHELIAL CELLS,URINE NOT SEEN /HPF
[2024-11-12 16:38] LABS: BLOOD UREA NITROGEN,BUN 18.0 mg/dL (7-18); CARBON DIOXIDE,CO2 28.0 mmol/L (21-32); CHLORIDE,CL 99.0 mmol/L (100-108); CREATININE 1.0 mg/dL (0.6-1.0); EST CRCL DRUG DOSING (CG) 36.67 mL/min; ESTIMATED GFR 58.0 mL/min (>60); GLUCOSE RANDOM 130.0 mg/dL (74-106); POTASSIUM,K 4.3 mmol/L (3.6-5.2); SODIUM,NA 138.0 mmol/L (140-148)
== END 2024-11-12 16:59 | disposition home or self-care (01) ==
LOC: JP.ED 14:50
DX: M62.830 Muscle spasm of back (principal); N39.0 Urinary tract infection, site not specified; I10 Essential (primary) hypertension; M19.90 Unspecified osteoarthritis, unspecified site; E78.00 Pure hypercholesterolemia, unspecified; Z88.2 Allergy status to sulfonamides; Z88.5 Allergy status to narcotic agent; Z88.8 Allergy status to other drugs, medicaments and biological substances; Z79.82 Long term (current) use of aspirin; Z79.899 Other long term (current) drug therapy; Z90.49 Acquired absence of other specified parts of digestive tract; Z90.710 Acquired absence of both cervix and uterus
CPT/HCPCS: 36415; 80048; 81001; 85025; 87086; 96372; 99283; A9270